=== PATIENT | female | born 1950 | race Caucasian/White ===

== ENCOUNTER → 2019-02-13 06:02 | Outpatient (CLI) | payer OTHER, SELFPAY ==
[2019-02-05 09:19] VITALS: BMI 24.7
--- NOTE | 2019-02-13 15:11 | STRESSREP_ITS ---
Stress Test Report Exercise myocardial perfusion stress test. 69-year-old lady with a history of chest pain. Stress protocol: Resting EKG demonstrates sinus bradycardia with a rate of 54 bpm normal intervals are noted resting blood pressures 150/80 mmHg. The patient exercised according to regular Rasta protocol for total duration of 7 minutes. The maxim um heart rate attained was 134 bpm which was 88% of maximum predicted heart rate and maximum workload was 8.5 metabolic equivalents. The patient maintained sinus rhythm throughout the recording. At rest there were no ST or T wave changes noted suggest ischemia peak exercise upsloping ST changes were noted with no meet the criteria for ischemia. The resting blood pressure was 150/80 with a final blood pressure 180/60 mmHg. No clinical angina was noted. Myocardial perfusion protocol. 11.7 mCi of technetium 99m sestamibi was injected at rest. The patient exercised according to regular Rasta protocol for total duration of 7 minutes. At peak exercise 32.6 mCi of technetium 99m sestamibi was injected stress images were obtained stress and rest images were reconstructed and compared in the short axis Perfusion SPECT analysis: Review of the images demonstrate normal uptake of tracer noted in all areas of the myocardium. The resting images similarly demonstrate normal uptake of tracer noted in all areas of the myocardium. No areas of reversibility are noted suggest ischemia or infarct. Gated SPECT analysis: The gated ejection fraction is 84%. Conclusion: Normal exercise myocardial perfusion stress test at a moderate workload. Preserved ejection fraction of 84%.
== END ==
PROVIDERS: Family Provider Internal Medicine; PCP Internal Medicine; Referring Provider Internal Medicine Cardiovascular Disease; Visit Provider Internal Medicine Cardiovascular Disease
DX: I48.0 Paroxysmal atrial fibrillation (principal); I10 Essential (primary) hypertension; R07.9 Chest pain, unspecified
CPT/HCPCS: 78452; 93017; A9500; A4216

== ENCOUNTER → 2019-02-17 10:47 | Outpatient (CLI) | payer OTHER, SELFPAY ==
[2019-02-05 09:19] VITALS: BMI 24.7
--- NOTE | 2019-02-17 10:48 | ECHOD_ITS ---
Reason For Study: ATRIAL FIB-FLUTTER Left Ventricle Normal LV size. Left ventricular systolic function is normal. The estimated ejection fraction is 65 %. Stage 1 diastolic dysfunction. No regional wall motion abnormalities noted. Right Ventricle Normal RV size. Normal systolic function. Atria Normal left atrium. Normal right atrium. Mitral Valve Normal mitral valve. Tricuspid Valve Normal tricuspid valve. Aortic Valve Normal aortic valve. Trisinus/trileaflet aortic valve. Pulmonic Valve Normal pulmonic valve. Great Vessels Normal aortic root. The pulmonary artery is normal size. Normal inferior vena cava. Pericardium/Pleural No pericardial effusion. MMode/2D Measurements & Calculations LVIDd: 4.3 cm IVSd: 0.94 cm Ao root diam: 3.0 cm LVIDs: 2.6 cm LVPWd: 1.0 cm RVDd: 3.0 cm FS: 39.7 % LAV(MOD-bp): 29.8 ml LVAd ap4: 21.7 cm2 SV(MOD-sp4): 41.6 ml LAV(MOD-bp) Indexed: 17.0 ml/m2 EDV(MOD-sp4): 57.2 ml LAV(MOD-sp2): 33.3 ml EDV(sp4-el): 57.8 ml LAV(MOD-sp4): 26.5 ml LVAs ap4: 9.8 cm2 ESV(MOD-sp4): 15.6 ml ESV(sp4-el): 15.1 ml EF(MOD-sp4): 72.7 % EF(sp4-el): 73.9 % SV(sp4-el): 42.7 ml LA dimension(2D): 3.9 cm LA A4 area: 12.8 cm2 RA A4 area: 11.0 cm2 Time Measurements MV dec time: 0.24 sec Doppler Measurements & Calculations MV E max eprnell: 74.5 cm/sec Lat Peak E' Pernell: 6.5 cm/sec Med Peak E' Pernell: 6.9 cm/sec MV A max pernell: 85.3 cm/sec E/E' lat: 11.5 E/E' med: 10.8 MV E/A: 0.87 Ao V2 max: 122.7 cm/sec LV V1 max: 130.8 cm/sec PA V2 max: 71.6 cm/sec Ao max P.0 mmHg LV V1 max P.8 mmHg Interpretation Summary Normal LV size. Left ventricular systolic function is normal. The estimated ejection fraction is 65 %. Stage 1 diastolic dysfunction. Structurally normal valves. Ordering Physician: Farooq Cervantes Referring Physician: ALFREDO MCBRIDE Performed By: Cristin Seay RDCS
== END ==
PROVIDERS: Family Provider Internal Medicine; PCP Internal Medicine; Referring Provider Internal Medicine Cardiovascular Disease; Visit Provider Internal Medicine Cardiovascular Disease
DX: I48.0 Paroxysmal atrial fibrillation (principal)
CPT/HCPCS: 93306

== ENCOUNTER → 2019-05-06 11:19 | Outpatient (REF) | payer OTHER, SELFPAY ==
[2019-05-06 10:23] VITALS: BMI 25.0
[2019-05-06 12:56] LABS: Absolute Lymphocyte Count 2.22 X10^3/uL (0.83-4.51); Absolute Neutrophil Count 3.5 X10^3/uL (2.0-7.7); Basophil# 0.04 X10^3/uL; Basophil% 0.6 % (0-1); Eosinophil# 0.22 X10^3/uL; Eosinophils% 3.4 % (0-5); Hematocrit 37.8 % (37-47); Hemoglobin 12.1 g/dL (12.0-15.0); Lymphocyte # 2.22 X10^3/ul (4.0); Lymphocyte % 34.2 % (19-41); Mean Corpuscular Hgb 30.8 pg (27.0-32.0); Mean Corpuscular Volume 96.2 fL (81-99); Mean Platelet Vol. 10.7 fl (6.2-12.0); Monocyte# 0.47 X10^3/uL; Monocyte% 7.2 % (0-10); NRBC Flagged by Analyzer 0 % (0-5); Neutrophil # 3.53 X10^3/uL (2.7-7.7); Neutrophil % 54.3 % (47-70); Platelet Count 261 K/mm3 (150-450); RBC Distribution Width CV 11.7 % (11.6-14.6); RBC Distribution Width SD 41.5 fl (35.1-43.9); Red Blood Count 3.93 M/mm3 (4.2-5.4); White Blood Count 6.5 K/mm3 (4.4-11.0)
[2019-05-06 13:35] LABS: Anion Gap 4 (5-15); BUN 18 mg/dL (7-18); BUN/Creat Ratio 23.4 RATIO (10-20); Calcium,Total 8.7 mg/dL (8.5-10.1); Chloride 107 mmol/L (98-107); Creatinine, Serum 0.77 mg/dL (0.55-1.02); EST Glomerular Filtration Rate 79 mL/min (>60); Est Glom Filt Rate - Afr Amer 96 mL/min (>60); Glucose 73 mg/dL (74-106); Magnesium 2.5 mg/dL (1.6-2.6); Potassium 4.3 mmol/L (3.5-5.1); Sodium Level 141 mmol/L (136-145); Thyroid Stim Hormone (TSH) 2.57 uIU/mL (0.358-3.74)
== END ==
LOC: CVS 11:19
PROVIDERS: Family Provider Internal Medicine; PCP Internal Medicine; Referring Provider Physician Assistant Medical; Visit Provider Physician Assistant Medical
DX: I47.1 Supraventricular tachycardia (principal); I48.0 Paroxysmal atrial fibrillation
CPT/HCPCS: 36415; 80048; 83735; 84443; 85025

== ENCOUNTER 2019-05-25 10:49 | Day surgery (SDC) | payer OTHER, SELFPAY ==
[2019-05-06 10:23] VITALS: BMI 25.0
--- NOTE | 2019-05-21 11:31 | RAD_ITS ---
STUDY: X-RAY CHEST REASON FOR EXAM: Female, 69 years old. Preop for pacemaker placement, A. fib, shortness of breath TECHNIQUE: PA and lateral views of the chest. COMPARISON: Prior study of 11/09/2016 FINDINGS: The lungs are clear and expanded. There is no demonstrated pleural abnormality. Normal size heart. Normal mediastinum and daniel. Normal visualized pulmonary arteries. Normal visualized aortic arch and descending thoracic aorta. Normal visualized thoracic spine. Normal visualized ribs, clavicles, and shoulders. There is no demonstrated abnormality of the visualized soft tissue structures of the upper abdomen. RAD/Chest PA and Lateral IMPRESSION: Normal x-ray examination of the chest. Electronically Signed: Radames Castillo MD at 23:54 EDT , Service support ,
[2019-05-21 12:06] LABS: Mucous, Urine 0 SEEN /hpf (<or=2+); Red Blood Cells-Urine 0 SEEN /hpf (0-5)
[2019-05-21 12:53] LABS: Color, Urine Yellow (Yellow); Glucose, Dipstick Normal (Normal); Ketone-Dipstick Negative (Negative); Leukocyte Esterase-Dipstick 500 /ul (Negative); Nitrite-Dipstick Negative (Negative); Occult Blood-Urine Negative /ul (Negative); Protein-Dipstick Negative (Negative); Specific Gravity, Urine 1.015 (1.002-1.030); Urine Bilirubin Dipstick Negative (Negative); Urine Clarity Sl. Cloudy (Clear); Urine Urobilinogen Normal (Normal)
[2019-05-21 13:03] LABS: Bacteria 1+ /hpf (None Seen); Squamous Epithelial Cells - UA 0-5 SEEN /hpf (5-10); White Blood Cells 25-50 SEEN /hpf (0-5)
[2019-05-21 13:12] LABS: International Normalized Ratio 1.3; Prothrombin Time (Protime)PT. 16.3 SECONDS (11.7-14.9)
[2019-05-22 12:28] VITALS: BMI 25.0
[2019-05-25] VITALS (12 sets, daily range): BP systolic 115–159; BP diastolic 59–93; PULSE 65–83; RESP 16–18; TEMP 36.7–36.8; O2SAT 93–100; BMI 25.0
--- NOTE | 2019-05-25 13:16 | CL.IE_ITS ---
Patient: MICHELE CARTER Study Date: 05/25/2019 Performing: Farooq Cervantes MD : 1950 Age: 69 Gender: female PROCEDURES PERFORMED XV81-VAMNNSS PACER INSERT+DUAL LEADS INDICATIONS Sinoatrial node dysfunction/Sick sinus syndrome PROCEDURE DETAILS The patient was brought to the Catheterization Lab in the postabsorptive nonsedated state. Infor med consent was obtained prior to the procedure. Local anesthetic was given subcutaneously to the le ft upper chest area with Lidocaine 2%. Incision was made to the left upper chest. Access was achieved and a guidewire was advanced into the left subclavian vein. PPM ventricular lead was inserted / posi tioned to right ventricular apex. PPM ventricular lead testing performed. PPM ventricular lead testin g performed. PPM atrial lead was inserted / positioned to the right atrial appendage. PPM atrial lead testing performed. The Ventricular PM lead sutured in place with 2-0 Silk. The Atrial lead sutured i n place with 2-0 Silk. PPM generator was attached to the lead(s) and inserted into the pocket. PPM ge nerator was then interrogated by the contract programmer. Device pocket was irrigated with antibiotic. Subcuta neous closure was completed with 3-0 Vicryl. Skin closure was completed with 4-0 Vicryl. Steri-strips applied to left subclavicular incision. The patient tolerated the procedure well. Estimated Blood Loss: < 10 mls IMPLANTED / EX-PLANTED DEVICES IMPLANTED DEVICE(S): PPM Ventricular lead - Government Relations Analyst: Busportal, Model # Ingevity MRI 7741 , Serial # [id number] PPM Atrial lead - Government Relations Analyst: [employer]portal, Model # Ingevity MRI 7740 , Serial # [id number] PPM Generator - Government Relations Analyst: [employer]portal, Model # Essentio MRI DR Pacemaker L111 , Serial # [id number] DEVICE PARAMETERS ATRIAL LEAD PARAMETERS: P wave- 7.2 (mV) Current- 1.1 (mA) threshold- 0.7 (V) impedence- 687 (OHMS) VENTRICULAR LEAD PARAMETERS: R wave- 18.3 (mV) Current- 0.7 (mA) threshold- 0.5 (V) impedence- 805 (OHMS) DEVICE PARAMETERS: Mode- DDD Lower rate- 60 Upper rate- 130 CONCLUSIONS / RECOMMENDATIONS Device Conclusions: Successful implantation of a dual chamber pacemaker Device Recommendations: Follow up with Primary Care Physician PROCEDURE MEDICATIONS Versed 1 mg IV Fentanyl 50 mcg IV Versed 1 mg IV Versed 1 mg IV Oxygen: 2 L/min via nasal cannula Antibiotic given in appropriate timeframe. Ancef 2 Gm IV @ 05/25/2019 12:08:50 Signed By Farooq Cervantes MD On 05/25/2019 13:15:15 Farooq Cervantes MD
[2019-05-25] MEDS: Acetaminophen 325 MG Tablet 650 MG PO ×2 (15:26→21:40)
[2019-05-25] MEDS: Flecainide 100 MG Tablet 50 MG PO (21:41)
[2019-05-25] MEDS: Smz/Tmp Ds Tablet 1 TABLET PO (21:41)
[2019-05-26 03:19] VITALS: PULSE 60
[2019-05-26 03:40] VITALS: BP 145/66; PULSE 67; RESP 18; TEMP 36.6; O2SAT 95
[2019-05-26] MEDS: Acetaminophen 325 MG Tablet 650 MG PO (04:35)
--- NOTE | 2019-05-26 05:00 | RAD_ITS ---
STUDY: X-RAY CHEST REASON FOR EXAM: Female, 69 years old. Status post pacemaker placement. TECHNIQUE: Single AP portable view of the chest. COMPARISON: 05/26/2019. FINDINGS: There is a left-sided pacemaker in place. The lungs are clear and slightly underexpanded. There is no demonstrated pleural abnormality. Normal size heart. Normal mediastinum and daniel. Normal visualized pulmonary arteries. There is atherosclerotic calcification of the aortic arch with tortuosity. There are diffuse degenerative changes of the visualized thoracic spine. There is degenerative osteoarthritis of the bilateral shoulders. There is no demonstrated abnormality of the visualized soft tissue structures of the upper abdomen. RAD/Chest 1 View IMPRESSION: Status post pacemaker placement otherwise no acute cardiopulmonary process seen. Electronically Signed: Lashawn Reed MD at 6:13 EDT , Service support ,
--- NOTE | 2019-05-26 05:55 | RAD_ITS ---
STUDY: X-RAY CHEST REASON FOR EXAM: Female, 69 years old. Status post pacemaker insertion, rule out pneumothorax. TECHNIQUE: PA and lateral views of the chest. COMPARISON: 05/21/2019. FINDINGS: There is a left-sided pacemaker in place, new in the interval. The lungs are clear and expanded. There is no demonstrated pleural abnormality. Normal size heart. Normal mediastinum and daniel. Normal visualized pulmonary arteries. There is atherosclerotic calcification of the aortic arch with tortuosity. There are diffuse degenerative changes of the visualized thoracic spine. There is degenerative osteoarthritis of the bilateral shoulders. There is no demonstrated abnormality of the visualized soft tissue structures of the upper abdomen. RAD/Chest PA and Lateral IMPRESSION: Status post pacemaker placement, otherwise no acute cardiopulmonary process seen. Electronically Signed: Lashawn Reed MD at 6:12 EDT , Service support ,
[2019-05-26 07:02] VITALS: PULSE 62
--- NOTE | 2019-05-26 07:51 | PCM.PN.CARD ---
Subjectve: Patient seen and evaluated. Appears to be doing well. Objective: Vital Signs Temp Pulse Resp BP Pulse Ox 97.8 F 67 18 145/66 H 95 05/26/19 03:40 05/26/19 03:40 05/26/19 03:40 05/26/19 03:40 05/26/19 03:40 Oxygen Delivery Method Room Air Weight: 149 lb 14.629 oz Body Mass Index (BMI) 25.0 Intake and Output for Last 24 Hours 05/24/19 05/25/19 05/26/19 23:59 23:59 23:59 Intake Total 700 / 700 480 / 480 Output Total 300 / 300 Balance 400 / 400 480 / 480 General: Awake, Alert, Oriented x 3 HEENT: PERRL, EOMI, Sclera Non Icteric Neck: Supple, Good ROM, No Lymph Node Enlargement Lungs: Clear to auscultation Cardiovascular: Regular Rhythm, Normal S1, Normal S2, No Murmurs, No Rubs, No Gallops Vascular: No Carotid Bruits, Normal Femoral Pulses, Normal Radial Pulses, Normal Dorsalis Pedal Pulse, Normal Posterior Tibial Pulses Abdomen: Bowel Sounds Present, Soft, Non Tender, No HSM, No Organomegaly Extremities: No Cyanosis, No Clubbing, No edema Musculoskeletal: No Erythema Skin: No Rashes Lymphatic: No Lymph Node Enlargement Neurological: No Focal Motor or Sensory Deficit Rhythm: EKG: ECHO: Stress Test: Cardiac Cath: PCI: CT Surgery: Holter monitor: EPS: PPM: CXR: Chest CT Scan: Medical Necessity - Tobacco Use Smoking Status: Former smoker Assessment/Plan 1. Status post permanent pacemaker implantation. Patient underwent chest x-ray which was noted to be normal as well as pacemaker check. Parameters look good and the patient will be discharged for outpatient follow-up.
--- NOTE | 2019-05-26 07:53 | DCINST_ITS ---
Discharge Diet: No Restrictions Discharge Activity: May Not Drive May shower in (days): 3 Call your doctor if your incision/area has: Continuous Slow Oozing, Sudden Increased Bleeding, Increased Pain/ Swelling, Increased Redness, Foul Smelling Discharge, Swelling at the incision site Call your doctor if you observe: Fever of 101 or Higher, Shortness of breath, Dizziness, Fainting spells, Swelling in the ankles, Chest pain, Prolonged hiccoughing, Increased palpitations (irregular heartbeat) Suture Line Care: Avoid Pulling/Pushing, Avoid Pinching/Bending Cleanse incision/area with: Do not get Incision Wet, Keep Dressing Clean & Dry Additional Dressing/Incision Instructions:: When dressing is removed, wash and dry incision. Keep covered with a light bandage if it is rubbing against your clothing. Do not cover the incision with an airtight bandage. Change the bandage daily. Do not remove steri strips. The strips will fall off on their own. Additional Instructions: Signs and Symptoms to Report to Your Doctor at Once - call your doctor's office or Doctor's Registry ([phone]) Call 911 or go to the nearest Emergency Department if you feel you need urgent care. *Infection (fever, increased redness or swelling at the incision site, drainage from the incision increased pain at the pacemaker site) *Shortness of breath *Dizziness *Fainting spells *Swelling in the ankles *Chest pain *Prolonged hiccoughing *Increased palpitaitons (irregular heartbeat) Medications: Take your pain medication as directed. Refer to your discharge instruction sheet for a list of medications you are to take. Allergies/Adverse Reactions: Allergies chlorhexidine Allergy (Verified 05/06/19 10:23) Rash estradiol [From Estrace] Allergy (Verified 05/06/19 10:23) unknown metoprolol Adverse Reaction (Intermediate, Verified 05/06/19 10:23) Orthostatic hypotension (does not have with Atenolol) naproxen Adverse Reaction (Verified 05/06/19 10:23) Upset Stomach negram Allergy (Uncoded 02/05/19 09:19) Unknown Medications to take at Discharge Raloxifene HCl 60 mg PO DAILY 11/09/16 cholecalciferol (vitamin D3) 400 unit tablet 400 unit PO QDAY 07/24/17 lansoprazole 30 mg capsule,delayed release 30 mg PO DAILY PRN 07/24/17 loratadine 10 mg tablet 10 mg PO QDAY 07/24/17 multivitamin tablet 1 tab PO ONCE 01/30/18 cranberry 500 mg capsule 500 mg PO DAILY cap 03/27/19 flecainide 100 mg tablet 50 mg PO BID tab 03/27/19 omega-3 fatty acids 1,000 mg capsule 1,000 mg PO DAILY 03/27/19 atenolol 50 mg tablet 25 mg PO DAILY tab 05/13/19 nitrofurantoin monohydrate/macrocrystals 100 mg capsule 100 mg PO BID #14 cap 05/21/19 Primary Care Physician: Lorin Garvey MD [Primary Care Provider] - Test Results: Test results from this visit will be discussed in further detail at your follow- up appointment, if applicable. When: pacer office june 02 at 4 pm Proposed Discharge Date: 05/26/19
== END 2019-05-26 07:45 | disposition home or self-care (01) ==
LOC: CLSP 10:50 → PCU 13:36
PROVIDERS: Family Provider Internal Medicine; PCP Internal Medicine; Referring Provider Internal Medicine Cardiovascular Disease; Visit Provider Internal Medicine Cardiovascular Disease
DX: I49.5 Sick sinus syndrome (principal); I10 Essential (primary) hypertension; I48.0 Paroxysmal atrial fibrillation; E78.5 Hyperlipidemia, unspecified; Z87.891 Personal history of nicotine dependence; Z95.0 Presence of cardiac pacemaker
CPT/HCPCS: 33208; 36415; 71045; 71046; 81001; 85610; 99152; 99153; J7040; J7050; C1894; Q9967

== ENCOUNTER 2020-02-22 08:43 | Day surgery (SDC) | payer OTHER, SELFPAY ==
[2020-02-19 13:28] VITALS: BMI 26.1
--- NOTE | 2020-02-19 14:45 | RAD_ITS ---
HISTORY: SINUS PAUSE, ABN EKG, SHORTNESS OF BREATH, AFIB. PT STATES DECREASED STAMINA SINCE PACEMAKER PLACEMENT. XR Chest 2 Views TECHNIQUE: Frontal lateral views of chest. # of images incl. paperwork: 2 COMPARISON: 05/26/2019 FINDINGS: LINES: Dual lead left-sided pacemaker in place. CARDIOVASCULAR STRUCTURES: Normal cardiomediastinal silhouette. Pulmonary vasculature appears normal. LUNGS: The lungs are clear. PLEURA: No pleural effusions or pneumothorax. BONES: No acute osseous abnormality of the thorax. RAD/Chest PA and Lateral IMPRESSION: 1. No acute cardiopulmonary disease. at 0110 Reported and signed by: Elpidio Stovall MD Electronically Signed: Elpidio Stovall MD at 1:09 EDT Tel , Service support ,
[2020-02-19 15:08] VITALS: BMI 26.1
[2020-02-19 15:28] LABS: Absolute Lymphocyte Count 2.15 X10^3/uL (0.83-4.51); Absolute Neutrophil Count 4.1 X10^3/uL (2.0-7.7); Basophil# 0.03 X10^3/uL; Basophil% 0.4 % (0-1); Eosinophil# 0.21 X10^3/uL; Hematocrit 37.8 % (37-47); Lymphocyte # 2.15 X10^3/ul (4.0); Lymphocyte % 30.7 % (19-41); Mean Corp Hgb Conc 31.7 g/dL (32-36); Mean Corpuscular Hgb 30.5 pg (27.0-32.0); Mean Corpuscular Volume 96.2 fL (81-99); Mean Platelet Vol. 10.2 fl (6.2-12.0); Monocyte# 0.46 X10^3/uL; Monocyte% 6.6 % (0-10); NRBC Flagged by Analyzer 0 % (0-5); Neutrophil # 4.14 X10^3/uL (2.7-7.7); Platelet Count 267 K/mm3 (150-450); RBC Distribution Width CV 12.1 % (11.6-14.6); RBC Distribution Width SD 42.4 fl (35.1-43.9); Red Blood Count 3.93 M/mm3 (4.2-5.4)
[2020-02-19 16:09] LABS: Anion Gap 2 (5-15); BUN 20 mg/dL (7-18); BUN/Creat Ratio 22.2 RATIO (10-20); Calcium,Total 8.4 mg/dL (8.5-10.1); Chloride 107 mmol/L (98-107); EST Glomerular Filtration Rate 66 mL/min (>60); Est Glom Filt Rate - Afr Amer 80 mL/min (>60); Estimated Creatinine Clearance 52.34 ml/min; Glucose 114 mg/dL (74-106); Potassium 3.7 mmol/L (3.5-5.1); Sodium Level 140 mmol/L (136-145)
--- NOTE | 2020-02-22 10:28 | CL.D_ITS ---
Patient Name: MICHELE CARTER Study Date: 02/22/2020 Performing: Farooq Cervantes MD Ht: 64.96 inches 165 cm : 1950 Wt: 156.53 lbs 71 kg Age: 70 Gender: female BSA: 1.78 PROCEDURE(S) PERFORMED CH50-XLQ/COR/LV CLINICAL PROFILE AND INDICATIONS Indications: Suspected CAD Heart Failure: None Stress/Imaging Stress/Image Study Performed: No CAD Presentations: Other: SOB CONCLUSIONS Normal coronary arteries Normal LV size, wall motion,and systolic function RECOMMENDATIONS Medical therapy DESCRIPTION OF PROCEDURE The patient arrived to the procedure lab. The risks and benefits of the procedure as well as a full d escription of our services here and current unavailability of surgical backup were fully explained to the patient and/or their significant other prior to the catheterization. The Timeout was completed, verifying the correct patient and procedure. The patient's procedural site was prepped and draped in the usual fashion. Local anesthetic was given subcutaneously to right radial region with Lidocaine 2% . Using a modified Seldinger technique, arterial access was obtained via the right radial artery, a 6 Fr sheath was inserted. Left Coronary Artery selective angiography was performed in multiple views u sing a 5 Fr. 4.0 [place] catheter. Right Coronary Artery selective angiography was then performed in mu ltiple views using a 5 Fr. 4.0 [place] catheter. Left Ventriculography was performed in [place] projection using a 5 Fr. Pig[place] catheter. LV to AO pullback pressures were then recorded.The arterial sheath was pulled and a TR Band was applied for hemostasis, 10cc of air was placed in the TR band. CORONARY ANGIOGRAPHY DOMINANCE: Right Dominant LEFT HEART ASSESSMENT Left Ventricular Ejection Fraction: by LV Gram 60 % Normal LV wall motion Normal Left Ventricular systolic function Normal Left Ventricular systolic function LEFT MAIN: Angiographically normal LEFT ANTERIOR DESCENDING ARTERY: Angiographically normal CIRCUMFLEX ARTERY: Angiographically normal RIGHT CORONARY ARTERY: Angiographically normal COMPLICATIONS No Complications PROCEDURE MEDICATIONS Versed 1 mg IV Fentanyl 50 mcg IV Oxygen: 2 L/min via nasal cannula Heparin diluted in 23cc Heparinized saline. Patient given 10cc IA of this solution. 02/22/2020 10:04: 22 Verapamil 2.5mg, Ntg 100mcgs, 2000 units of Heparin diluted in 23cc Heparinized saline. Patient give n 10cc IA of this solution. 02/22/2020 10:04:22 SUMMARY OF HEMODYNAMIC DATA Time AIR REST ECG 09:06:14 AO 130/69 (94) SA 10:06:18 LV 143/-2, 2 10:11:46 LV 130/-4, 0 10:11:52 LV 114/2, 9 10:12:35 LVp 118/1, 5 10:12:41 AOp 128/58 (89) 10:12:46 Signed By Farooq Cervantes MD On 02/22/2020 10:27:15 Farooq Cervantes MD
== END 2020-02-22 12:20 | disposition home or self-care (01) ==
PROVIDERS: PCP Internal Medicine; Referring Provider Internal Medicine Cardiovascular Disease; Visit Provider Internal Medicine Cardiovascular Disease
DX: R06.02 Shortness of breath (principal); R06.00 Dyspnea, unspecified; I10 Essential (primary) hypertension; I48.0 Paroxysmal atrial fibrillation; Z95.0 Presence of cardiac pacemaker; Z87.891 Personal history of nicotine dependence
CPT/HCPCS: 36415; 71046; 80048; 85025; 93458; 99152; 99153; J7040; Q9967; C1769; C1894

== ENCOUNTER → 2020-09-01 14:27 | Outpatient (CLI) | payer OTHER, SELFPAY ==
[2020-09-01 13:48] VITALS: BMI 25.2
[2020-09-01 16:03] LABS: CRP, High Sensitivity Cardiac 5.82 mg/L
== END ==
PROVIDERS: PCP Internal Medicine; Referring Provider Internal Medicine Cardiovascular Disease; Visit Provider Internal Medicine Cardiovascular Disease
DX: R07.9 Chest pain, unspecified (principal)
CPT/HCPCS: 36415; 86141

== ENCOUNTER → 2021-01-27 08:58 | Outpatient (CLI) | payer MEDICARE, SELFPAY ==
[2020-09-01 13:48] VITALS: BMI 25.2
--- NOTE | 2021-01-27 09:05 | RAD_ITS ---
STUDY: X-RAY CHEST REASON FOR EXAM: Female, 71 years old. sob TECHNIQUE: PA and lateral views of the chest. COMPARISON: 02/19/2020 FINDINGS: Left subclavian dual-lead pacemaker. The lungs are clear and expanded. There is no demonstrated pleural abnormality. Normal size heart. Normal mediastinum and daniel. Normal visualized pulmonary arteries. Normal visualized aortic arch and descending thoracic aorta. Normal visualized thoracic spine. Normal visualized ribs, clavicles, and shoulders. There is no demonstrated abnormality of the visualized soft tissue structures of the upper abdomen. RAD/Chest PA and Lateral IMPRESSION: No active disease. Electronically Signed: Ernesto Bowie MD at 10:50 EDT Tel , Service support ,
--- NOTE | 2021-01-28 07:22 | PFT ---
INTRODUCTION: The patient is a 71-year-old female that presents for pulmonary function studies secondary to a diagnosis of shortness of breath. Respiratory therapy reports good patient effort. Bronchodilators were used during testing. INTERPRETATION: Forced expiration spirometry demonstrates no evidence of a large airways obstructive ventilatory defect. There was no significant response to aerosolized bronchodilators, based upon strict ATS criteria. Spirograms are of good quality and plateau normally. Body plethysmography was performed and reveals lung volumes to be within normal limits. Diffusing capacity by single breath CO is also within normal limits. IMPRESSION: Grossly normal pulmonary function studies.
== END ==
PROVIDERS: PCP Family Medicine; Referring Provider Family Medicine; Visit Provider Family Medicine
DX: R07.89 Other chest pain (principal); R06.02 Shortness of breath
CPT/HCPCS: 71046; 94060; 94726; 94729

== ENCOUNTER → 2021-02-14 08:26 | Outpatient (CLI) | payer MEDICARE, SELFPAY ==
[2020-09-01 13:48] VITALS: BMI 25.2
== END ==
PROVIDERS: PCP Family Medicine; Referring Provider Internal Medicine Cardiovascular Disease; Visit Provider Internal Medicine Cardiovascular Disease
DX: I48.91 Unspecified atrial fibrillation (principal); R00.0 Tachycardia, unspecified
CPT/HCPCS: 93225; 93226

== ENCOUNTER → 2021-03-14 07:54 | Outpatient (CLI) | payer MEDICARE, SELFPAY ==
[2020-09-01 13:48] VITALS: BMI 25.2
--- NOTE | 2021-03-14 08:45 | CT_ITS ---
STUDY: CT CHEST WITHOUT CONTRAST REASON FOR EXAM: Female, 71 years old. 6 months of pain w/o clear cause with SOB. Remote tobacco. ++FHx RADIATION DOSAGE (If Supplied By Facility): CTDIvol = ( 7.55 ) mGy, DLP = ( 243.63 ) mGycm TECHNIQUE: Transaxial imaging was performed without the administration of intravenous contrast material. Multiplanar coronal and sagittal images were reformatted. Individualized dose optimization techniques were used for this CT. COMPARISON: Comparison is made with prior chest radiograph dated 01/27/2021. FINDINGS: Mild degree of emphysematous changes. Findings suggest some scarring at the lung apices bilaterally. There is no demonstrated pleural abnormality. A left-sided dual-chamber pacemaker is seen. There are multiple small lymph nodes within the mediastinum, which are normal in size and morphology most compatible with reactive lymph hyperplasia. Normal hilar regions. Normal unenhanced pulmonary arteries. There is atherosclerotic calcification of the aortic arch . There are degenerative changes of the thoracic spine. There is no demonstrated abnormality of the visualized upper abdomen. CT/Chest without Contrast IMPRESSION: Mild degree of emphysematous changes. Electronically Signed: Rik Vasquez MD at 10:51 EDT , Service support ,
[2021-03-14 08:56] VITALS: PULSE 60; PULSE 61; PULSE 74; PULSE 77; PULSE 80; PULSE 81; PULSE 82; O2SAT 94; O2SAT 95; O2SAT 97; O2SAT 98
== END ==
PROVIDERS: PCP Family Medicine; Visit Provider Family Medicine
DX: R07.89 Other chest pain (principal); R06.02 Shortness of breath
CPT/HCPCS: 71250; 94618

== ENCOUNTER 2021-03-22 09:51 | Outpatient (RCR) | payer MEDICARE, SELFPAY ==
[2020-09-01 13:48] VITALS: BMI 25.2
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
--- NOTE | 2021-04-07 09:31 | HP.PT.NRP ---
MICHELE CARTER was seen in my office for initial evaluation on 03/22/21. The following Plan of Care was established for this patient: Initial Frequency: 2-3x /Week Initial Duration: 4-6 Weeks Patient/Client Instruction: Educate patient on: Condition, Plan of Care, Risk Factors For the Purpose of:: To improve self management Therapeutic Exercise to Include: Strength training, Body mechanics, Postural training, Flexibilty training, Neuromotor development, Scapular Strength/Stabilization For the Purpose of:: To decrease pain, To improve muscle performance and motor function, To increase tolerance to activity/condition/position, To improve ability of physical actions for home/community/work/leisure This patient was last seen in our office 03/22/21. Pertinent comments regarding their Physical therapy will appear below: THIS PATIENT PRESENTED TO PT WANTING TO CANCEL BUT REPORTING FEELING BAD DUE TO ALL THE CANCELLATIONS SHE HAS MADE. SHE HAS NOT BEEN BACK SINCE HER INITIAL EVALUATION. STATES THAT WHILE SHE HAS BEEN RECOVERING FROM COVID THE SYMPTOMS THAT DR. MAHONEY SENT HER HERE FOR HAVE RESOLVED. SHE IS CANCELLING ALL GABRIELA'TS AND WILL FOLLOW UP WITH DR. MAHONEY NEEDED. At this point I will be discontinuing this patient from physical therapy. I would be happy to see this patient again in the future if found appropriate by the physician. Thank you! Jennifer Carter, PT, Cert MDT Balance/Gait/Functional tests - Balance/Special Test Scores Quick DASH Score: 36.3622
== END 2021-04-22 19:00 | disposition home or self-care (01) ==
LOC: PT 09:51
PROVIDERS: PCP Family Medicine; Referring Provider Family Medicine; Visit Provider Family Medicine
DX: M79.602 Pain in left arm (principal); R07.9 Chest pain, unspecified
CPT/HCPCS: 97112; 97162

== ENCOUNTER → 2021-05-05 07:59 | Outpatient (CLI) | payer MEDICARE, SELFPAY ==
[2021-05-05 09:40] LABS: Anion Gap 5 (5-15); BUN 15 mg/dL (7-18); BUN/Creat Ratio 18.3 RATIO (10-20); Chloride 106 mmol/L (98-107); Creatinine, Serum 0.82 mg/dL (0.55-1.02); EST Glomerular Filtration Rate 73 mL/min (>60); Est Glom Filt Rate - Afr Amer 88 mL/min (>60); Glucose 86 mg/dL (74-106); Potassium 4.3 mmol/L (3.5-5.1); Sodium Level 143 mmol/L (136-145)
== END ==
PROVIDERS: PCP Family Medicine; Referring Provider Nurse Practitioner Gerontology; Visit Provider Nurse Practitioner Gerontology
DX: I10 Essential (primary) hypertension (principal)
CPT/HCPCS: 36415; 80048

== ENCOUNTER → 2021-11-22 | Outpatient (CLI) | payer MEDICARE, SELFPAY ==
[2021-11-22 08:56] LABS: Anion Gap 6 (5-15); BUN 15 mg/dL (7-18); BUN/Creat Ratio 15.1 RATIO (10-20); Calcium,Total 8.4 mg/dL (8.5-10.1); Chloride 106 mmol/L (98-107); Creatinine, Serum 0.99 mg/dL (0.55-1.02); EST Glomerular Filtration Rate 59 mL/min (>60); Est Glom Filt Rate - Afr Amer 71 mL/min (>60); Glucose 90 mg/dL (74-106); Magnesium 2.3 mg/dL (1.6-2.6); Sodium Level 143 mmol/L (136-145); T4 Free Direct 0.94 ng/dL (0.76-1.46); Thyroid Stim Hormone (TSH) 5.79 uIU/mL (0.358-3.74)
== END | disposition home or self-care (01) ==
LOC: LAB 08:04
PROVIDERS: PCP Family Medicine; Referring Provider Nurse Practitioner Family; Visit Provider Nurse Practitioner Family
DX: I48.0 Paroxysmal atrial fibrillation (principal); I47.1 Supraventricular tachycardia; I10 Essential (primary) hypertension
CPT/HCPCS: 36415; 80048; 83735; 84439; 84443

== ENCOUNTER → 2022-01-03 | Outpatient (CLI) | payer MEDICARE, SELFPAY ==
[2022-01-03 09:26] LABS: PTHIN 73.5 pg/mL (18.4-80.1)
[2022-01-03 09:35] LABS: Cholesterol 210 mg/dL (200); High Density Lipoprotein 71 mg/dL; T4 Free Direct 0.93 ng/dL (0.76-1.46); Thyroid Stim Hormone (TSH) 4.58 uIU/mL (0.358-3.74); Triglycerides 90 mg/dL; Very Low Density Lipoprotein 18 mg/dL (5-40)
[2022-01-03 10:05] LABS: Hepatitis C Antibody Non-Reactive (Nonreactive); Vitamin D,25 Hydroxy 48.4 ng/mL
== END | disposition home or self-care (01) ==
LOC: LAB 08:00
PROVIDERS: PCP Family Medicine; Referring Provider Family Medicine; Visit Provider Family Medicine
DX: Z00.00 Encounter for general adult medical examination without abnormal findings (principal); I48.91 Unspecified atrial fibrillation; M85.80 Other specified disorders of bone density and structure, unspecified site; R79.89 Other specified abnormal findings of blood chemistry; Z11.59 Encounter for screening for other viral diseases
CPT/HCPCS: 36415; 80061; 82306; 83970; 84439; 84443; 86803

== ENCOUNTER → 2022-02-20 | Outpatient (CLI) | payer MEDICARE, SELFPAY ==
--- NOTE | 2022-02-20 09:36 | BI_ITS ---
MAMMOGRAPHY - BILATERAL SCREENING REASON FOR EXAM: Female, 72 years old. Routine annual screening examination. PERTINENT HISTORY: Sister with breast cancer. Mother with breast cancer. TECHNIQUE: Digital bilateral breast shirin (3D mammographic acquisition) in the CC and MLO projections. 2-D mediolateral oblique (MLO) and craniocaudad (CC) views of both breasts were obtained. CAD: Full Field Digital Mammography with Computer Added Detection was performed. COMPARISON: Comparison is made with prior outside examination dated 02/16/2021. FINDINGS: Breast Composition: There are scattered areas of fibroglandular density. There are no dominant masses or suspicious calcifications. A pacemaker battery pack is seen in the left axillary region. No other significant abnormalities are identified. There has been no significant change since the prior study. BI/SCRN MAMM (CAD)W/SHIRIN BILAT IMPRESSION: Stable bilateral screening mammogram. Yearly follow-up mammogram recommended. (A) ASSESSMENT CATEGORY: BIRADS Category 2: Benign. A letter regarding these results will be sent to the patient by the facility within 30 days. Approximately 10% of breast cancers are not detected by mammography. A normal mammogram should not delay biopsy of a clinically suspicious abnormality. [id number] Electronically Signed: Rik Vasquez MD at 10:50 EDT ,
--- NOTE | 2022-02-20 09:59 | BD_ITS ---
STUDY: DUAL ENERGY X-RAY ABSORPTIOMETRY / DXA REASON FOR EXAM: Female, 72 years old. 733.90OsteopeniaBONE DENSITY REASON FOR EXAM TECHNIQUE: Bone Mineral Density (BMD) measurements of lumbar spine and bilateral hips were obtained. COMPARISON: None. FINDINGS: Lumbar Spine (L1-L4): g/cm2 (0.971) / T-score (-0.7) / Z-score (1.5) Findings are suggestive of normal bone density with a low fracture risk. Left Femur Total: g/cm2 (0.840) / T-score (-0.8) / Z-score (0.8) Left Femoral Neck: g/cm2 (0.622) / T-score (-2.0) / Z-score (-0.1) Right Femur Total: g/cm2 (0.931) / T-score (-0.1) / Z-score (1.5) Right Femoral Neck: g/cm2 (0.751) / T-score (-0.9) / Z-score (1.0) BD/Dexa Bone Density Study IMPRESSION: The patient is considered osteopenic as outlined below according to World Regan Organization (WHO) criteria with a moderate fracture risk. Reference Information: The T-score is the number of standard deviations above or below the standard which is normal for young adults at their peak bone mineral density. The World Health Organization (WHO) interprets the T-scores as follows: Above -1 Normal bone density Between -1 and -2.5 Osteopenia Equal to / or below -2.5 Osteoporosis As a practical clinical guideline, osteopenia may be graded as follows: Mild -1 through -1.5 Moderate -1.6 through -2.0 Severe -2.1 through -2.4 The Z-score is the number of standard deviations above or below age-matched controls. A Z-score of less than -1.5 would be considered abnormal. References: 1. NIH Osteoporosis and Related Bone Diseases www osteo.org 2. International Society for Clinical Densitometry www iscd.org 3. National Osteoporosis Foundation www nof.org Electronically Signed: Rik Vasquez MD at 10:37 EDT ,
== END | disposition home or self-care (01) ==
PROVIDERS: PCP Family Medicine; Referring Provider Family Medicine; Visit Provider Family Medicine
DX: Z12.31 Encounter for screening mammogram for malignant neoplasm of breast (principal); Z80.3 Family history of malignant neoplasm of breast; M85.89 Other specified disorders of bone density and structure, multiple sites
CPT/HCPCS: 77063; 77067; 77080

== ENCOUNTER → 2022-03-05 | Outpatient (CLI) | payer MEDICARE, SELFPAY ==
[2022-03-05 18:25] LABS: T4 Free Direct 0.99 ng/dL (0.76-1.46); Thyroid Stim Hormone (TSH) 2.91 uIU/mL (0.358-3.74)
== END | disposition home or self-care (01) ==
LOC: MTLAB 16:06 → MFPLAB 16:55
PROVIDERS: PCP Family Medicine; Referring Provider Family Medicine; Visit Provider Family Medicine
DX: E05.90 Thyrotoxicosis, unspecified without thyrotoxic crisis or storm (principal)
CPT/HCPCS: 36415; 84439; 84443

== ENCOUNTER → 2022-03-08 | Outpatient (CLI) | payer MEDICARE, SELFPAY | END | disposition home or self-care (01) | LOC: LABSPEC 13:54 | PROVIDERS: PCP Family Medicine; Visit Provider Family Medicine | DX: R30.0 Dysuria (principal) | CPT/HCPCS: 87086; 87088 ==

== ENCOUNTER → 2022-04-23 | Outpatient (CLI) | payer MEDICARE, SELFPAY | END | disposition home or self-care (01) | LOC: LABSPEC 15:03 | PROVIDERS: PCP Family Medicine; Visit Provider Family Medicine | DX: R30.0 Dysuria (principal) | CPT/HCPCS: 87077; 87086; 87088; 87186 ==

== ENCOUNTER → 2022-05-15 | Outpatient (CLI) | payer MEDICARE, SELFPAY ==
[2022-05-15 10:12] LABS: Color, Urine Yellow (Yellow); Glucose, Dipstick Normal (Normal); Ketone-Dipstick 5 mg/dl (Negative); Leukocyte Esterase-Dipstick 500 /ul (Negative); Nitrite-Dipstick Negative (Negative); Occult Blood-Urine 10 /ul (Negative); Protein-Dipstick 30 mg/dl (Negative); Specific Gravity, Urine 1.015 (1.002-1.030); Urine Bilirubin Dipstick Negative (Negative); Urine Clarity Sl. Cloudy (Clear); Urine Urobilinogen 1 mg/dl (Normal)
== END | disposition home or self-care (01) ==
LOC: LABSPEC 09:33
PROVIDERS: PCP Family Medicine; Referring Provider Family Medicine; Visit Provider Family Medicine
DX: K76.0 Fatty (change of) liver, not elsewhere classified (principal)
CPT/HCPCS: 81002; 87086; 87088

== ENCOUNTER → 2022-07-10 | Outpatient (CLI) | payer MEDICARE, SELFPAY ==
--- NOTE | 2022-07-10 13:50 | CT_ITS ---
STUDY: CT ABDOMEN AND PELVIS WITH AND WITHOUT CONTRAST REASON FOR EXAM: Female, 72 years old. HEMATURIA intermittently for several months. History of recurrent UTIs. RADIATION DOSAGE (If Supplied By Facility): CTDIvol = ( 12.89 ) mGy, DLP = ( 1467.69 ) mGycm TECHNIQUE: Transaxial images were obtained from the dome of the diaphragm to the symphysis pubis without oral contrast. IV 100mL Isovue-300 was administered. Sagittal and coronal images were reconstructed. Individualized dose optimization techniques were used for this CT. COMPARISON: None. FINDINGS: The visualized lung bases are unremarkable. Pacemaker wires are visualized. Normal liver. The patient is status post cholecystectomy. Normal spleen. Normal pancreas. Normal bilateral adrenal glands. Subcentimeter cyst in the anterior aspect of the right kidney. There is a 1.8 cm cyst in the lower pole of the left kidney. Normal visualized stomach. 1.9 cm elliptical shaped density is seen in the proximal small bowel most likely representing a tablet. A similar-appearing density is seen in the transverse colon. Surgical anastomosis is seen in the cyst rectosigmoid junction. The appendix is visualized and appears normal. Normal abdominal aorta. Normal inferior vena cava. Normal retroperitoneum. A tiny air bubble is seen in the anterior aspect of the urinary bladder. Normal abdominal wall. There are degenerative changes of the visualized lumbar spine. CT/CT Abd/Pelvis W/WO Contrast IMPRESSION: Tiny cysts seen in both kidneys. Tiny air bubble is seen in the anterior aspect of the urinary bladder. Electronically Signed: Rik Vasquez MD at 15:37 EST ,
[2022-07-10 14:21] LABS: CREATININE FINGERSTICK 1.1 mg/dL (0.55-1.02)
== END | disposition home or self-care (01) ==
LOC: CT 13:49
PROVIDERS: PCP Family Medicine; Referring Provider Urology; Visit Provider Urology
DX: R31.0 Gross hematuria (principal); N39.0 Urinary tract infection, site not specified; N28.1 Cyst of kidney, acquired; Z90.49 Acquired absence of other specified parts of digestive tract
CPT/HCPCS: 74178; Q9967

== ENCOUNTER → 2022-08-13 | Outpatient (CLI) | payer MEDICARE, SELFPAY | END | disposition home or self-care (01) | LOC: LABSPEC 17:54 | PROVIDERS: PCP Family Medicine; Visit Provider Urology | DX: N30.01 Acute cystitis with hematuria (principal) | CPT/HCPCS: 87077; 87086; 87088; 87186 ==

== ENCOUNTER → 2022-09-21 | Outpatient (CLI) | payer MEDICARE, SELFPAY ==
[2022-09-21 10:11] LABS: Absolute Lymphocyte Count 1.51 X10^3/uL (0.83-4.51); Absolute Neutrophil Count 3.2 X10^3/uL (2.0-7.7); Basophil# 0.01 X10^3/uL; Basophil% 0.2 % (0-1); Eosinophil# 0.12 X10^3/uL; Eosinophils% 2.3 % (0-5); Hematocrit 40.2 % (37-47); Hemoglobin 12.7 g/dL (12.0-15.0); Lymphocyte # 1.51 X10^3/ul (0.83-4.51); Lymphocyte % 28.6 % (19-41); Mean Corp Hgb Conc 31.6 g/dL (32-36); Mean Corpuscular Hgb 30.3 pg (27.0-32.0); Mean Corpuscular Volume 95.9 fL (81-99); Mean Platelet Vol. 10.4 fl (6.2-12.0); Monocyte# 0.42 X10^3/uL; NRBC Flagged by Analyzer 0 % (0-5); Neutrophil # 3.21 X10^3/uL (2.7-7.7); Neutrophil % 60.7 % (47-70); Platelet Count 237 K/mm3 (150-450); RBC Distribution Width CV 12.4 % (11.6-14.6); RBC Distribution Width SD 43.8 fl (35.1-43.9); Red Blood Count 4.19 M/mm3 (4.2-5.4); White Blood Count 5.3 K/mm3 (4.4-11.0)
[2022-09-21 11:09] LABS: AST(SGOT) 24 U/L (15-37); Alanine Aminotransfer ALT/SGPT 33 U/L (13-56); Albumin, Serum 3.2 g/dL (3.2-5.0); Alkaline Phosphatase 68 U/L (45-117); Anion Gap 6 (5-15); BUN 16 mg/dL (7-18); BUN/Creat Ratio 17.5 RATIO (10-20); Calcium,Total 8.6 mg/dL (8.5-10.1); Chloride 107 mmol/L (98-107); Creatinine, Serum 0.91 mg/dL (0.55-1.02); EST Glomerular Filtration Rate 64 mL/min (>60); Est Glom Filt Rate - Afr Amer 78 mL/min (>60); Globulin 3.3 g/dL (2.2-4.2); Glucose 83 mg/dL (74-106); Potassium 3.7 mmol/L (3.5-5.1); Protein, Total 6.5 g/dL (6.4-8.2); Sodium Level 140 mmol/L (136-145); Thyroid Stim Hormone (TSH) 3.37 uIU/mL (0.358-3.74)
== END | disposition home or self-care (01) ==
LOC: MFPLAB 08:55
PROVIDERS: PCP Family Medicine; Referring Provider Family Medicine; Visit Provider Family Medicine
DX: E05.90 Thyrotoxicosis, unspecified without thyrotoxic crisis or storm (principal); G47.10 Hypersomnia, unspecified
CPT/HCPCS: 36415; 80053; 84439; 84443; 85025

== ENCOUNTER 2022-10-08 09:25 | Emergency (ER) | payer MEDICARE, SELFPAY ==
[2022-10-08] VITALS (11 sets, daily range): BP systolic 118–151; BP diastolic 50–87; PULSE 64–122; RESP 18–20; TEMP 37.3–39.2; O2SAT 85–96; BMI 26.1
--- NOTE | 2022-10-08 09:47 | EKG12_ITS ---
Test Reason : WEAKNESS Blood Pressure : / mmHG Vent. Rate : 115 BPM Atrial Rate : 000 BPM P-R Int : 000 ms QRS Dur : 102 ms QT Int : 264 ms P-R-T Axes : 000 -14 178 degrees QTc Int : 365 ms Atrial fibrillation with rapid ventricular response with premature ventricular or aberrantly conducte d complexes ST & T wave abnormality, consider inferior ischemia ST & T wave abnormality, consider anterolateral ischemia Abnormal ECG Confirmed by BRITT MARTIN, ERIK ([id number]), scientific publications editor JERRI GAGNON ([id number]) on 10/10/2022 9:47:47 AM Referred By: Confirmed By:ERIK DE LA TORRE MD
--- NOTE | 2022-10-08 09:48 | ED.VIS.CHEST ---
HPI History of Present Illness Chief Complaint: Weakness Narrative Narrative: 72-year-old female presenting with chest pain, shortness of breath. She describes it as retrosternal. She states its been ongoing since last evening intermittently. She states she does have a pacemaker, but notes that her heart rate was as high as 190s last night. She states that it seemed to calm down since then. She describes her chest pain as achy. Patient does take Eliquis for history of A-fib. She had recent vaginal prolapse surgery and held her Eliquis Saturday and Saturday of last week so she could have the surgery on . She states she has had a little bit of spotting but no real bleeding to speak of. She reports she started back on her Eliquis last evening. No history of DVT/PE. Denies any leg or calf pain. [facility] Medical History Essential (primary) hypertension Hyperlipidemia Immunodeficiency Palpitations Paroxysmal atrial fibrillation Paroxysmal supraventricular tachycardia Sick sinus syndrome Sinus pause Thoracic outlet syndrome Home Medications multivitamin 1 tab PO ONCE 01/30/18 [History Last Taken Unknown] omega-3 fatty acids 1,000 mg capsule 1,000 mg PO DAILY 03/27/19 [History Last Taken Unknown] lansoprazole 30 mg capsule,delayed release 30 mg PO DAILY PRN stomach acid 06/16/19 [History Last Taken 02/22/20] raloxifene 60 mg tablet 60 mg PO DAILY 06/16/19 [History Last Taken Unknown] B-complex with vitamin C 1 tab PO DAILY 02/19/20 [History Last Taken Unknown] apixaban 5 mg tablet (Eliquis) See Rx Instructions .Route .COMPLEX #180 tabs 07/25/20 [Rx Last Taken Unknown] cranberry 500 mg capsule 500 mg PO BID 09/01/20 [History Last Taken Unknown] loratadine 10 mg tablet 10 mg PO DAILY 09/01/20 [History Last Taken Unknown] calcium carbonate 500 mg calcium (1,250 mg) tablet (Calcium 500) 500 mg PO BID 03/24/21 [History Last Taken Unknown] cholecalciferol (vitamin D3) 10 mcg (400 unit) tablet 2,000 unit PO BID 03/24/21 [History Last Taken Unknown] selenium 200 mcg tablet ea PO 12/28/21 [History Last Taken Unknown] atenolol 25 mg tablet 25 mg PO DAILY #90 tabs 03/05/22 [Rx Last Taken Unknown] amiodarone 200 mg tablet 200 mg PO DAILY #90 tabs 06/28/22 [Rx Last Taken Unknown] Allergy/AdvReac Type Severity Reaction Status Date / Time chlorhexidine Allergy Rash Verified 10/08/22 09:29 estradiol [From Estrace] Allergy unknown Verified 10/08/22 09:29 metoprolol AdvReac Intermediate Orthostatic Verified 10/08/22 09:29 hypotension (does not have with Atenolol) naproxen AdvReac Upset Verified 10/08/22 09:29 Stomach negram Allergy Unknown Uncoded 10/08/22 09:29 Family History Mother Breast cancer Diabetes Hypertension Sister Cancer Surgical History History of hysteroscopy History of left heart catheterization (02/22/20) History of permanent cardiac pacemaker placement (05/25/19) Hx laparoscopic cholecystectomy Hx of vaginal surgery Social History Smoking Status: Former smoker alcohol intake: current alcohol intake frequency: holidays/special occasions only Alcohol type: wine and hard liquor substance use type: does not use caffeine: Yes Type: tea what type of physical activity do you participate in: none seatbelt use: always do you feel safe at home: Yes ROS ROS ED Review of Systems ROS Unobtainable: due to encephalopathy Constitutional Constitutional ED: Reports chills Eyes Eyes: Denies blurry vision or change in vision ENT ENT ED: Denies rhinorrhea Cardiovascular Cardiovascular: Reports chest pain, palpitations and racing heartbeat Respiratory/Chest Respiratory/Chest: Reports dyspnea; Denies cough Gastrointestinal Gastrointestinal: Reports nausea; Denies abdominal pain or vomiting Genitourinary Genitourinary ED: Denies dysuria or hematuria Musculoskeletal Musculoskeletal: Denies back pain or neck pain Integumentary Denies abscess or Abrasions Neurologic Neurologic: Reports headache(s); Denies paresthesias Psychiatric Psychiatric: Denies anxiety or depression EXAM Physical Exam Const Vital Signs: 10/08/22 09:26 10/08/22 09:42 10/08/22 10:17 Temperature 99.2 F H Temperature Source Temporal Pulse Rate 122 H Respiratory Rate 18 Respiratory Effort Short of Breath Respiratory Pattern Tachypnea Blood Pressure 151/87 H Blood Pressure Mean 108 Pulse Ox 96 Oxygen Delivery Method Room Air Room Air Oxygen Flow Rate (L/min) 10/08/22 10:27 10/08/22 11:00 10/08/22 11:05 Temperature Temperature Source Pulse Rate 69 Respiratory Rate Respiratory Effort Respiratory Pattern Blood Pressure Blood Pressure Mean Pulse Ox 85 88 Oxygen Delivery Method Room Air Nasal Cannula Oxygen Flow Rate (L/min) 2 10/08/22 11:06 10/08/22 11:41 10/08/22 12:35 Temperature 101.9 F H 102.5 F H Temperature Source Oral Oral Pulse Rate 67 Respiratory Rate 18 Respiratory Effort Respiratory Pattern Blood Pressure 131/52 H Blood Pressure Mean 78 Pulse Ox 95 96 Oxygen Delivery Method Nasal Cannula Nasal Cannula Oxygen Flow Rate (L/min) 3 3 10/08/22 14:38 10/08/22 16:15 10/08/22 16:43 Temperature 99.5 F H 99.1 F Temperature Source Oral Pulse Rate 64 65 64 Respiratory Rate 19 H 20 H 20 H Respiratory Effort Respiratory Pattern Blood Pressure 118/50 L 131/53 H Blood Pressure Mean 72 79 Pulse Ox 94 95 94 Oxygen Delivery Method Nasal Cannula Nasal Cannula Oxygen Flow Rate (L/min) 3 3 Positive well nourished General Appearance ED: NAD; Negative for pallor HEENT Reports moist mucous membranes normocephalic and atraumatic Eyes PERRL and EOMs intact bilaterally Neck no JVD Chest Wall inspection of chest normal and palpation of chest normal Resp normal respiratory effort and clear to auscultation bilaterally Auscultation: Negative for rales, rhonchi or wheezes Cardio Rate: tachycardic Rhythm: abnormal rhythm irregularly irregular GI normal to inspection, nondistended, normoactive bowel sounds Extremity normal to inspection General Extremety ED: Negative for edema General Extremity: Negative for edema Neuro oriented x3 and CN's II-XII intact bilaterally Sensorium / Orientation: awake and alert Skin no rashes or lesions noted General Skin Exam: Negative for jaundice or pallor Heart Score History: Slightly/Non-Suspicious ECG: Normal Age: >/= 65 years Risk Factors: 1 or 2 Risk Factors Score: 3 MDM MDM MDM Narrative Medical decision making narrative: Patient presenting with chest pain and shortness of breath. She has been off of her Eliquis postoperative until last evening. She had recent surgery for vaginal prolapse. Differential includes but is not limited to ACS, PE, pneumonia, pneumothorax, muscle strain, costochondritis, acute blood loss anemia, pacemaker failure, A-fib, SVT. CBC will be obtained to assess white blood cell count, hemoglobin, platelets, differential. BMP to assess white renal function, electrolytes, high-sensitivity troponin to assess for cardiac source include with the EKG and chest x-ray. Patient postoperative and has not been off of Eliquis with chest pain with tachycardia and will rule out a PE as well. EKG on my interpretation shows atrial fibrillation with RVR at a rate of 115 bpm. CBC shows a slight white blood cell count of 14.3. Hemoglobin levels at 9. This is acutely changed as it was 12.7 in August of this year. I was able to look up the read for her surgery which stated there was only 25 cc of blood loss. The patient does however state that postoperatively in her bed at [facility] she had multiple episodes of vaginal bleeding which eventually was controlled but she states she soaked through many blankets. She also reports that she was lightheaded upon standing for the first day or so but the next day she felt well. There was no recheck of her hemoglobin. Her BNP is slightly elevated today at 640 as well. I suspect that since she has been in a tachycardic rhythm since last evening she might of been pushed into heart failure because on her chest x-ray there is trace pleural effusions bilaterally. Initially she was on room air but eventually desatted to 85% and is stable on 3 L of oxygen. Because she has been off of her Eliquis and had recent surgery I did obtain a CTA of the chest which does not identify any PE or dissection. It does show the pleural effusions as well. There is no organized infiltrate noted on the CTA. Urinalysis was not convincing at the for UTI. The patient then developed a fever initially 101.9 and then 102.5. She was given Tylenol. I then tested her with a rapid COVID and influenza and these were negative. Since the patient's hemoglobin was low I did do an occult stool and this is positive. She does not report any black or bloody stools but she is on Eliquis and restarted yesterday. Currently she is normotensive. Given the patient is postoperative with a fever I did call her surgeon Dr. Kellogg, and reviewed the case with him. Given that she has a postoperative fever and anemia he felt like it was reasonable to have her be transferred to [facility] for monitoring. He recommended a dose of Zosyn. Since she already had a CT done today we will hold off on a CT scan of her abdomen pelvis. She is not having any pain in her abdomen. She describes minimal vaginal spotting currently. We did discuss doing a viral respiratory panel as well as a COVID PCR. I did obtain blood cultures prior to starting Zosyn. Urinalysis was cultured as well. Patient counseled on all findings and the plan and she is amenable to this. She is transferred in stable condition. Impression: 1. Acute blood loss anemia 2. Leukocytosis 3. Postoperative fever 4. GI bleed 5. A-fib with RVR 6. CHF 7. Pleural effusion Lab Data Labs: Laboratory Results - last 24 hr 10/08/22 10/08/22 10/08/22 10:22 10:22 10:22 WBC 14.3 H RBC 2.92 L Hgb 9.0 L Hct 28.5 L MCV 97.6 MCH 30.8 MCHC 31.6 L RDW Std Deviation 48.0 H RDW Coeff of Katya 13.6 Plt Count 244 MPV 10.5 Immature Gran % (Auto) 1.100 H Neut % (Auto) 82.0 H Lymph % (Auto) 9.1 L Kemper % (Auto) 7.4 Eos % (Auto) 0.2 Baso % (Auto) 0.2 Absolute Neuts (auto) 11.7 H Absolute Lymphs (auto) 1.29 Nucleated RBC % 0.2 Sodium 141 Potassium 3.7 Chloride 105 Carbon Dioxide 29.0 Anion Gap 7 BUN 23 H Creatinine 0.88 Estim Creat Clear Calc 52.00 Est GFR (MDRD) Af Amer 82 Est GFR (MDRD) Non-Af 67 BUN/Creatinine Ratio 26.3 H Glucose 119 H Calcium 8.6 Troponin I High Sens 7 B-Natriuretic Peptide 640.4 H Urine Color Urine Clarity Urine pH Ur Specific Kirkwood Urine Protein Urine Glucose (UA) Urine Ketones Urine Occult Blood Urine Nitrite Urine Bilirubin Urine Urobilinogen Ur Leukocyte Esterase Urine RBC Urine WBC Ur Squamous Epith Cells Ur Transition Epith Cell Urine Bacteria Urine Mucus 10/08/22 10/08/22 11:01 12:33 WBC RBC Hgb Hct MCV MCH MCHC RDW Std Deviation RDW Coeff of Katya Plt Count MPV Immature Gran % (Auto) Neut % (Auto) Lymph % (Auto) Kemper % (Auto) Eos % (Auto) Baso % (Auto) Absolute Neuts (auto) Absolute Lymphs (auto) Nucleated RBC % Sodium Potassium Chloride Carbon Dioxide Anion Gap BUN Creatinine Estim Creat Clear Calc Est GFR (MDRD) Af Amer Est GFR (MDRD) Non-Af BUN/Creatinine Ratio Glucose Calcium Troponin I High Sens 8 B-Natriuretic Peptide Urine Color Yellow Urine Clarity Sl. Cloudy Urine pH 7.0 Ur Specific Kirkwood 1.010 Urine Protein 30 H Urine Glucose (UA) Normal Urine Ketones Negative Urine Occult Blood 250 H Urine Nitrite Negative Urine Bilirubin Negative Urine Urobilinogen Normal Ur Leukocyte Esterase 500 H Urine RBC 25-50 SEEN Urine WBC 25-50 SEEN Ur Squamous Epith Cells 0-5 SEEN Ur Transition Epith Cell 0-5 SEEN Urine Bacteria 1+ Urine Mucus 0 SEEN Radiography Diagnostic Testing: Clinical Impression(s) from Imaging Studies Chest X-Ray 10/08/22 10:03 IMPRESSION: Blunting of the right costophrenic angle is developed since previous study suggesting small right pleural effusion with likely associated atelectasis. Follow-up recommended to assure resolution Electronically Signed: Pepe Basilio MD at 10:20 EDT Reading Location ID and State: [facility] / [place] , Service support , Chest CTA 10/08/22 11:18 IMPRESSION: No demonstrated PE, or thoracic aortic aneurysm or dissection Chronic interstitial changes in both lung pena with small bilateral pleural effusions and bibasilar atelectasis. No organized infiltrate. There is evidence of chronic bronchitis No suspicious adenopathy Degenerative bony changes Electronically Signed: Pepe Basilio MD at 11:41 EDT , Discharge Plan Triage Chief Complaint: Weakness ED Provider: Luis Laureano Dx/Rx/DC Orders Prescriptions: No Action cholecalciferol (vitamin D3) 400 unit tablet 10 mcg (400 unit) tablet 2,000 unit PO BID multivitamin tablet 1 tab PO ONCE omega-3 fatty acids 1,000 mg capsule 1,000 mg PO DAILY cranberry 500 mg capsule 500 mg PO BID B-complex with vitamin C Tablet 1 tab PO DAILY calcium carbonate [Calcium 500] 500 mg calcium (1,250 mg) tablet 500 mg PO BID loratadine 10 mg tablet 10 mg PO DAILY selenium 200 mcg tablet PO Label Comments: take 1 tablet by mouth once daily raloxifene 60 mg tablet 60 mg PO DAILY Label Comments: TAKE ONE TABLET BY MOUTH ONCE DAILY lansoprazole 30 mg capsule,delayed release(DR/EC) 30 mg PO DAILY PRN (Reason: stomach acid) Label Comments: TAKE ONE CAPSULE BY MOUTH EVERY DAY as needed apixaban [Eliquis] 5 mg tablet See Rx Instructions .ROUTE .COMPLEX Qty: 180 3RF Dose Instruction: take 1 tablet by mouth twice a day Rx Instructions: take 1 tablet by mouth twice a day atenolol 25 mg tablet 25 mg PO DAILY Qty: 90 3RF Hold Instructions: Low BP amiodarone 200 mg tablet 200 mg PO DAILY Qty: 90 3RF Primary Care Provider: Hilario Amaral Referrals: Hilario Amaral MD [Primary Care Provider] -
--- NOTE | 2022-10-08 10:03 | RAD_ITS ---
STUDY: X-RAY CHEST REASON FOR EXAM: Female, 72 years old. Chest pain TECHNIQUE: Single AP portable view of the chest. COMPARISON: 01/27/2021 FINDINGS: EKG leads overlie the chest. Stable appearance of the left subclavian pacemaker Lungs are expanded, left lung is clear, development of opacification in the right cardiophrenic angle since previous study suggests effusion. Normal size heart. Normal mediastinum and daniel. Normal visualized pulmonary arteries. Normal visualized aortic arch and descending thoracic aorta. Normal visualized thoracic spine. Normal visualized ribs, clavicles, and shoulders. There is no demonstrated abnormality of the visualized soft tissue structures of the upper abdomen. RAD/Chest 1 View (Portable) IMPRESSION: Blunting of the right costophrenic angle is developed since previous study suggesting small right pleural effusion with likely associated atelectasis. Follow-up recommended to assure resolution Electronically Signed: Pepe Basilio MD at 10:20 EDT ,
[2022-10-08] MEDS: dilTIAZem 25 MG/5 ML Vial 20 MG IV BOLUS (10:19)
[2022-10-08] MEDS: 0.9% Normal Saline 1,000 ML 1000 ML IV (10:19)
[2022-10-08 10:29] LABS: Absolute Lymphocyte Count 1.29 X10^3/uL (0.83-4.51); Absolute Neutrophil Count 11.7 X10^3/uL (2.0-7.7); Basophil# 0.03 X10^3/uL; Basophil% 0.2 % (0-1); Eosinophil# 0.03 X10^3/uL; Eosinophils% 0.2 % (0-5); Hematocrit 28.5 % (37-47); Lymphocyte # 1.29 X10^3/ul (0.83-4.51); Lymphocyte % 9.1 % (19-41); Mean Corp Hgb Conc 31.6 g/dL (32-36); Mean Corpuscular Hgb 30.8 pg (27.0-32.0); Mean Corpuscular Volume 97.6 fL (81-99); Mean Platelet Vol. 10.5 fl (6.2-12.0); Monocyte# 1.06 X10^3/uL; Monocyte% 7.4 % (0-10); NRBC Flagged by Analyzer 0.2 % (0-5); Neutrophil # 11.68 X10^3/uL (2.7-7.7); Platelet Count 244 K/mm3 (150-450); RBC Distribution Width CV 13.6 % (11.6-14.6); Red Blood Count 2.92 M/mm3 (4.2-5.4); White Blood Count 14.3 K/mm3 (4.4-11.0)
[2022-10-08 10:45] LABS: Anion Gap 7 (5-15); BUN 23 mg/dL (7-18); BUN/Creat Ratio 26.3 RATIO (10-20); Calcium,Total 8.6 mg/dL (8.5-10.1); Chloride 105 mmol/L (98-107); Creatinine, Serum 0.88 mg/dL (0.55-1.02); EST Glomerular Filtration Rate 67 mL/min (>60); Est Glom Filt Rate - Afr Amer 82 mL/min (>60); Glucose 119 mg/dL (74-106); Potassium 3.7 mmol/L (3.5-5.1); Sodium Level 141 mmol/L (136-145); Troponin-I HS (w/2H Reflex) 7 pg/mL (3.0-54.0)
[2022-10-08 10:50] LABS: BNP,B-Type NATRIURETIC PEPTIDE 640.4 pg/mL (0-100)
[2022-10-08 11:05] LABS: Mucous, Urine 0 SEEN /hpf (<or=2+)
[2022-10-08 11:12] LABS: Color, Urine Yellow (Yellow); Glucose, Dipstick Normal (Normal); Ketone-Dipstick Negative (Negative); Leukocyte Esterase-Dipstick 500 /ul (Negative); Nitrite-Dipstick Negative (Negative); Occult Blood-Urine 250 /ul (Negative); Protein-Dipstick 30 mg/dl (Negative); Urine Bilirubin Dipstick Negative (Negative); Urine Clarity Sl. Cloudy (Clear); Urine Urobilinogen Normal (Normal)
[2022-10-08 11:18] LABS: Bacteria 1+ /hpf (None Seen); Red Blood Cells-Urine 25-50 SEEN /hpf (0-5)
--- NOTE | 2022-10-08 11:18 | CT_ITS ---
STUDY: CTA CHEST REASON FOR EXAM: Female, 72 years old. Atypical chest pain, diaphoresis RADIATION DOSAGE (If Supplied By Facility): CTDIvol = ( 11.40 ) mGy, DLP = ( 436.13 ) mGy TECHNIQUE: The examination was performed with the intravenous administration of IV 100mL [id number]-[id number]. Post-processing of the angiographic images was performed, with multiplanar reformation and 3D reconstruction. Individualized dose optimization techniques were used for this CT. COMPARISON: None. FINDINGS: Normal enhancement of the main pulmonary artery and right and left pulmonary arteries. Normal enhancement of the bilateral peripheral pulmonary arteries. There is no demonstrated pulmonary embolism. Normal thoracic aorta and visualized great vessels. There is no demonstrated aortic dissection. Normal heart and pericardium. No coronary artery calcifications noted, pacer leads seen along the base of the heart Scattered subcentimeter in short axis dimension, likely physiologic, axillary and mediastinal lymph nodes. No suspicious perihilar adenopathy There is peribronchial thickening. The lungs are well expanded. Chronic interstitial changes noted in both lung pena with small bilateral pleural effusions, and bibasilar atelectasis. Normal pleura. Normal chest wall structures. There are degenerative changes of thoracic spine. Normal visualized upper abdomen. CT/CTA Chest W/WO Contrast IMPRESSION: No demonstrated PE, or thoracic aortic aneurysm or dissection Chronic interstitial changes in both lung pena with small bilateral pleural effusions and bibasilar atelectasis. No organized infiltrate. There is evidence of chronic bronchitis No suspicious adenopathy Degenerative bony changes Electronically Signed: Pepe Basilio MD at 11:41 EDT ,
[2022-10-08 11:19] LABS: Squamous Epithelial Cells - UA 0-5 SEEN /hpf (5-10); Transitional Epithelial - Ur 0-5 SEEN /hpf (0-5); White Blood Cells 25-50 SEEN /hpf (0-5)
[2022-10-08] MEDS: Acetaminophen 500 MG Tablet 1000 MG PO (11:46)
[2022-10-08 12:26] LABS: Reflex Troponin-HS? (from REC) Y
[2022-10-08 12:55] LABS: Troponin-I HS 8 pg/mL (3.0-54.0)
== END 2022-10-08 17:56 | disposition short-term general hospital (02) ==
LOC: ED 09:54
PROVIDERS: Emergency Provider Student in an Organized Health Care Education/Training Program; PCP Family Medicine; Visit Provider Student in an Organized Health Care Education/Training Program
DX: D62 Acute posthemorrhagic anemia (principal); I11.0 Hypertensive heart disease with heart failure; I50.9 Heart failure, unspecified; I48.91 Unspecified atrial fibrillation; I48.0 Paroxysmal atrial fibrillation; K92.2 Gastrointestinal hemorrhage, unspecified; Z87.891 Personal history of nicotine dependence; N93.9 Abnormal uterine and vaginal bleeding, unspecified; D72.829 Elevated white blood cell count, unspecified; R19.5 Other fecal abnormalities; E78.5 Hyperlipidemia, unspecified; R50.82 Postprocedural fever; J90 Pleural effusion, not elsewhere classified; R06.02 Shortness of breath; R07.9 Chest pain, unspecified
CPT/HCPCS: 36415; 71045; 71275; 80048; 81001; 82274; 83880; 84484; 85025; 87040; 87086; 87088; 87428; 87633; 87635; 93005; 96361; 96365; 99284; J7030; J7050; Q9967; A4216; U0003; U0005

== ENCOUNTER → 2022-10-15 | Outpatient (CLI) | payer MEDICARE, SELFPAY ==
[2022-10-15 17:50] LABS: Hematocrit 31.3 % (37-47); Hemoglobin 9.5 g/dL (12.0-15.0); Mean Corp Hgb Conc 30.4 g/dL (32-36); Mean Corpuscular Hgb 30.6 pg (27.0-32.0); Mean Platelet Vol. 10.6 fl (6.2-12.0); Platelet Count 422 K/mm3 (150-450); RBC Distribution Width CV 14.6 % (11.6-14.6); White Blood Count 12.2 K/mm3 (4.4-11.0)
== END | disposition home or self-care (01) ==
LOC: MFPLAB 14:36
PROVIDERS: Nurse Practitioner Family; PCP Family Medicine; Visit Provider Family Medicine
DX: D64.9 Anemia, unspecified (principal)
CPT/HCPCS: 36415; 85027

== ENCOUNTER → 2022-11-06 | Outpatient (CLI) | payer MEDICARE, SELFPAY ==
[2022-11-06 12:36] LABS: Absolute Lymphocyte Count 1.25 X10^3/uL (0.83-4.51); Basophil# 0.02 X10^3/uL; Basophil% 0.3 % (0-1); Eosinophil# 0.14 X10^3/uL; Eosinophils% 2.4 % (0-5); Hematocrit 37.2 % (37-47); Hemoglobin 11.6 g/dL (12.0-15.0); Lymphocyte # 1.25 X10^3/ul (0.83-4.51); Lymphocyte % 21.6 % (19-41); Mean Corp Hgb Conc 31.2 g/dL (32-36); Mean Corpuscular Hgb 30.9 pg (27.0-32.0); Mean Corpuscular Volume 98.9 fL (81-99); Mean Platelet Vol. 10.1 fl (6.2-12.0); Monocyte# 0.37 X10^3/uL; Monocyte% 6.4 % (0-10); NRBC Flagged by Analyzer 0 % (0-5); Neutrophil # 3.99 X10^3/uL (2.7-7.7); Neutrophil % 69.1 % (47-70); Platelet Count 295 K/mm3 (150-450); RBC Distribution Width CV 13.3 % (11.6-14.6); RBC Distribution Width SD 48.3 fl (35.1-43.9); Red Blood Count 3.76 M/mm3 (4.2-5.4); Reticulocyte Count 1.24 % (0.5-1.5); White Blood Count 5.8 K/mm3 (4.4-11.0)
[2022-11-06 12:48] LABS: Erythrocyte Sedimentation Rate 15 mm/hr (0-30)
[2022-11-06 12:57] LABS: Vitamin B12 608 pg/mL (211-911)
[2022-11-06 13:35] LABS: ALB/GLOB Ratio 0.9 RATIO (0.9-2.4); AST(SGOT) 25 U/L (15-37); Alanine Aminotransfer ALT/SGPT 35 U/L (13-56); Albumin, Serum 3.1 g/dL (3.2-5.0); Alkaline Phosphatase 78 U/L (45-117); Anion Gap 5 (5-15); BUN 20 mg/dL (7-18); BUN/Creat Ratio 25.2 RATIO (10-20); Calcium,Total 8.3 mg/dL (8.5-10.1); Chloride 108 mmol/L (98-107); Creatinine, Serum 0.79 mg/dL (0.55-1.02); EST Glomerular Filtration Rate 75 mL/min (>60); Est Glom Filt Rate - Afr Amer 91 mL/min (>60); Ferritin 194 ng/mL (8-252); Globulin 3.4 g/dL (2.2-4.2); Glucose 90 mg/dL (74-106); Iron Binding Capacity,Total 287 ug/dL (250-450); Potassium 3.6 mmol/L (3.5-5.1); Protein, Total 6.5 g/dL (6.4-8.2); Sodium Level 141 mmol/L (136-145)
== END | disposition home or self-care (01) ==
LOC: MFPLAB 10:49
PROVIDERS: PCP Family Medicine; Referring Provider Family Medicine; Visit Provider Family Medicine
DX: D64.9 Anemia, unspecified (principal)
CPT/HCPCS: 36415; 80053; 82607; 82728; 82746; 83550; 85025; 85045; 85652

== ENCOUNTER → 2023-01-01 | Outpatient (CLI) | payer MEDICARE, SELFPAY ==
[2023-01-01 13:18] LABS: Vitamin B12 1355 pg/mL (211-911)
[2023-01-01 13:28] LABS: Iron 74 ug/dL (50-170); Thyroid Stim Hormone (TSH) 3.25 uIU/mL (0.358-3.74)
== END | disposition home or self-care (01) ==
LOC: MFPLAB 09:53
PROVIDERS: PCP Family Medicine; Visit Provider Nurse Practitioner Family
DX: D64.9 Anemia, unspecified (principal); E05.90 Thyrotoxicosis, unspecified without thyrotoxic crisis or storm
CPT/HCPCS: 36415; 82607; 83540; 84443

== ENCOUNTER → 2023-01-07 | Outpatient (CLI) | payer MEDICARE, SELFPAY ==
--- NOTE | 2023-01-07 11:27 | RAD_ITS ---
EXAM: XR LEFT KNEE COMPLETE, 4 OR MORE VIEWS CLINICAL INDICATION: Left knee pain; no known injury TECHNIQUE: Four or more views of the left knee. COMPARISON: No relevant prior studies available. FINDINGS: BONES/JOINTS: Unremarkable. No acute fracture. No subluxation. Normal alignment. Preservation of the joint space. No sclerotic or destructive changes observed. SOFT TISSUES: Unremarkable. No soft tissue swelling or gas. No radiopaque foreign body. RAD/Knee 4 or More Views IMPRESSION: Negative left knee x-rays. Electronically Signed: Yfn Salas MD at 1:12 EDT ,
[2023-01-07 15:30] LABS: Hematocrit 41.1 % (37-47); Hemoglobin 12.6 g/dL (12.0-15.0); Mean Corp Hgb Conc 30.7 g/dL (32-36); Mean Corpuscular Volume 97.9 fL (81-99); Mean Platelet Vol. 10.6 fl (6.2-12.0); Platelet Count 253 K/mm3 (150-450); RBC Distribution Width CV 12.8 % (11.6-14.6); RBC Distribution Width SD 45.5 fl (35.1-43.9); White Blood Count 6.5 K/mm3 (4.4-11.0)
== END | disposition home or self-care (01) ==
LOC: MTLAB 11:26
PROVIDERS: PCP Family Medicine; Referring Provider Nurse Practitioner Family; Visit Provider Nurse Practitioner Family
DX: M25.569 Pain in unspecified knee (principal); D64.9 Anemia, unspecified
CPT/HCPCS: 36415; 73564; 85027

== ENCOUNTER → 2023-02-22 | Outpatient (CLI) | payer MEDICARE, SELFPAY ==
--- NOTE | 2023-02-22 10:03 | BI_ITS ---
MAMMOGRAPHY - BILATERAL SCREENING REASON FOR EXAM: Female, 73 years old. Routine annual screening examination. PERTINENT HISTORY: Sister with breast cancer. Mother with breast cancer. TECHNIQUE: Digital bilateral breast shirin (3D mammographic acquisition) in the CC and MLO projections. 2-D mediolateral oblique (MLO) and craniocaudad (CC) views of both breasts were obtained. CAD: Full Field Digital Mammography with Computer Added Detection was performed. COMPARISON: Comparison is made with prior study dated February 20, 2022. FINDINGS: Breast Composition: There are scattered areas of fibroglandular density. There are no dominant masses or suspicious calcifications. A pacemaker battery pack is seen in the left axilla. No other significant abnormalities are identified. There has been no significant change since the prior study. BI/SCRN MAMM (CAD)W/SHIRIN BILAT IMPRESSION: Stable bilateral screening mammogram. Yearly follow-up mammogram recommended. (A) ASSESSMENT CATEGORY: BIRADS Category 2: Benign. A letter regarding these results will be sent to the patient by the facility within 30 days. Approximately 10% of breast cancers are not detected by mammography. A normal mammogram should not delay biopsy of a clinically suspicious abnormality. [id number] Electronically Signed: Rik Vasquez MD at 12:21 EDT ,
== END | disposition home or self-care (01) ==
LOC: OPBI 10:02
PROVIDERS: PCP Family Medicine; Referring Provider Family Medicine; Visit Provider Family Medicine
DX: Z12.31 Encounter for screening mammogram for malignant neoplasm of breast (principal); Z80.3 Family history of malignant neoplasm of breast
CPT/HCPCS: 77063; 77067

== ENCOUNTER → 2023-02-25 | Outpatient (CLI) | payer MEDICARE, SELFPAY ==
[2023-02-25 11:26] LABS: EST Glomerular Filtration Rate 74 mL/min (>60); Est Glom Filt Rate - Afr Amer 90 mL/min (>60)
== END | disposition home or self-care (01) ==
LOC: LAB 10:16
PROVIDERS: PCP Family Medicine; Referring Provider Specialist; Visit Provider Specialist
DX: M25.562 Pain in left knee (principal)
CPT/HCPCS: 36415; 82565

== ENCOUNTER → 2023-03-13 | Outpatient (CLI) | payer MEDICARE, SELFPAY ==
--- NOTE | 2023-03-13 13:10 | MRI_ITS ---
STUDY: MRI LEFT KNEE REASON FOR EXAM: Female, 73 years old. Knee pain and effusion. TECHNIQUE: Standardized fat and water weighted pulse sequences were obtained in all 3 orthogonal planes. COMPARISON: None. FINDINGS: Horizontal cleavage tear of the posterior horn of the medial meniscus with truncation of the posterior horn and body and mild extrusion of the remnant of the body (sagittal series 4 images 4-11, coronal series 6 images 12-17). Marked thinning of the articular cartilage of the medial femorotibial compartment with reactive subchondral bone marrow edema and small osteophytes (coronal series 6 images 11-19). Mild MCL sprain (coronal series 6 images 12-15). Normal distal semimembranosus, gracilis and semitendinosus tendons. Normal lateral meniscus. Mild thinning of the articular cartilage of the lateral femorotibial compartment (coronal series 6 images 10-17). Normal lateral femoral condyle and tibial plateau. Normal proximal tibiofibular articulation. Normal lateral collateral (fibular) ligament. Normal popliteus tendon. Normal biceps femoris tendon. Normal anterior cruciate ligament (ACL). Normal posterior cruciate ligament (PCL). Normal congruent patellofemoral articulation. Mild thinning of the articular cartilage of the patellofemoral compartment with minimal reactive subchondral bone marrow edema in the patella (axial series 2 images 9-16). Normal medial and lateral patellar retinaculum. Normal quadriceps tendon. Normal patellar tendon. Normal Hoffa''s fat pad. Small joint effusion with dissecting septated popliteal cyst (axial series 2 images 8-16). Marked prepatellar subcutaneous soft tissue edema (sagittal series 4 images 11-16). The remainder of the visualized osseous structures are normal. MRI/Lower Ext Joint Only (Routine) IMPRESSION: Horizontal cleavage tear posterior horn of the medial meniscus with truncation of the posterior horn and body and mild extrusion of the remnant of the body of the medial meniscus. Marked thinning of the articular cartilage of the medial femorotibial compartment. Mild MCL sprain. Mild thinning of the articular cartilage of the lateral femorotibial and patellofemoral compartments. Marked prepatellar subcutaneous soft tissue edema. Small joint effusion with dissecting septated popliteal cyst. Electronically Signed: Juarez Guillen MD at 15:35 EDT ,
[2023-03-13 13:30] VITALS: BP 137/77; PULSE 60; RESP 16; O2SAT 93
[2023-03-13 13:45] VITALS: BP 146/74; PULSE 80; RESP 16; O2SAT 92
[2023-03-13 14:00] VITALS: BP 154/75; PULSE 80; RESP 16; O2SAT 90
[2023-03-13 14:11] VITALS: BP 160/67; PULSE 60; RESP 16; O2SAT 97
== END | disposition home or self-care (01) ==
PROVIDERS: PCP Family Medicine; Referring Provider Specialist; Visit Provider Specialist
DX: M25.462 Effusion, left knee (principal); M25.562 Pain in left knee
CPT/HCPCS: 73721

== ENCOUNTER → 2023-08-19 | Outpatient (CLI) | payer MEDICARE, SELFPAY ==
--- NOTE | 2023-08-19 10:11 | RAD_ITS ---
INDICATION: CHEST PAIN/SOB EXAMINATION/TECHNIQUE: X-RAY - XR Chest 2 Views COMPARISON: Prior study dated: 10/08/2022 FINDINGS: LINES/DEVICES: Left-sided dual-chamber pacemaker in stable position. LUNGS: No consolidation, edema or effusion. No pneumothorax. MEDIASTINUM AND CARDIOVASCULAR STRUCTURES: Cardiac silhouette not enlarged. Central airways and mediastinal contour are unremarkable. BONES AND SOFT TISSUES: Unremarkable. RAD/Chest PA and Lateral IMPRESSION: No radiographic evidence of acute cardiopulmonary disease. Electronically Signed: Ernie Young MD at 10:31 EST ,
--- OUTSIDE RECORDS SUMMARY | 2023-08-19 11:32 | XMS RPT_ITS | CCD ---
Author Name Unknown Address [id number] [place] [address] Organization [facility] Care Team Providers Care Ammonia Box Operator Name Role Phone Michele Amaral Unavailable REKHA Rainey, Sindhu Ford Unavailable Unavaillidia Rainey RN, Sindhu Ford Unavailable Unavaillidia Herbert RN, Tania Temple Unavailable Unavailable Michele Amaral Unavailable Munir MARTIN, Diana Euceda Primary Care Provider [phone] DIANA AMARAL Primary Care Unavailable WENDY TRIANA Attending Unavailable DIANA AMARAL Primary Care Unavailable BENI GOLDEN Referring Unavailable DIANA AMARAL Primary Care Unavailable DIANA AMARAL Primary Care Unavailable ANABELA SALVADOR CNP Attending Unavailable ANABELA SALVADOR CNP Admitting Unavailable DIANA AMARAL Primary Care Unavailable ARTUR LEBLANC CRNA Consulting UnavailNICOLE Esquivel MD Attending Unavailab NICOLE Rivas MD Admitting Unavailab AMELIA Duran DO Consulting Unavailable NICOLE CHAMORRO MD Admitting Unavailab DIANA Bingham Primary Care Unavailable AGATHA PIEDRA DO Consulting UnavailNICOLE Esquivel MD Attending Unavailab Yash MARTIN, Diana Temple Primary Care Provider [phone] YARI HUGO Attending Unavailable DIANA AMARAL Primary Care Unavailable Allergies Allergy Classification Reported Allergen(s) Allergy Type Date of Onset Reaction(s) Facility (10 sources) chlorhexidine; Translations: [CHLORHEXIDINE] drug allergy 9 [facility] Work Phone: (5 sources) estradiol drug allergy 4 [facility] Work Phone: (9 sources) naproxen; Translations: [NAPROXEN] drug allergy 0 GI Upset [facility] Work Phone: (5 sources) NEGRAM (QUININE FAMILY) drug allergy 2 [facility] Work Phone: (5 sources) ENVIROMENTAL drug allergy 2 [facility] Work Phone: (4 sources) Estradiol; Translations: [ESTRADIOL] Drug Allergy 2 Swelling [facility] Work Phone: (1 source) environmental [Other] Propensity to adverse reactions 8 [facility] Work Phone: (1 source) OTHER; Translations: [OTHER] Propensity to adverse reactions (disorder) 8 [facility] Repository Medications Current Medications Medication Drug Class(es) Dates Sig (Normalized) Sig (Original) amiodarone hydrochloride 200 mg oral tablet (1 source) Antiarrhythmic Start: 08-05-2023 amiodarone (Pacerone) 200 mg tablet amoxicillin 875 mg oral tablet (1 source) Penicillin-class Antibacterial Start: 08-16-2023 End: 08-26-2023 take 1 tablet by mouth twice daily at mealtime amoxicillin (Amoxil) 875 mg tablet Indications: Acute sinusitis, recurrence not specified, unspecified location Take 1 tablet (875 mg) by mouth 2 times a day for 10 days. Take with food. 20 tablet 0 08/16/2023 08/26/2023 Active apixaban 5 mg oral tablet (8 sources) Factor Xa Inhibitor Start: 12-07-2016 apixaban (Eliquis) 5 mg tablet Take by mouth twice a day. 0 06/27/2017 Active Completed/Discontinued Medications Medication Drug Class(es) Dates Sig (Normalized) Sig (Original) Biotin (2 sources) Start: 01-17-2017 take 1 tablet by mouth once daily BIOTIN FORTE TABS One tablet by mouth daily BIOTIN TABS [id number] Farooq Cervantes MD Calcium (11 sources) Phosphate Binder, Calcium Start: 03-02-2010 CALCIUM 500 MG TAB Take one(1) tablet three times daily. 0 03/02/2010 Active Problems Active Problems Problem Classification Problem Date Documented Date Episodic/Chronic Abdominal pain (2 sources) Right flank pain; Translations: [Unspecified abdominal pain] Onset: 03-04-2013 03-04-2013 Episodic Cardiac dysrhythmias (14 sources) Supraventricular tachycardia; Translations: [Paroxysmal atrial fibrillation] Onset: 07-08-2014 07-08-2014 Chronic Cardiac dysrhythmias (7 sources) Palpitations; Translations: [Tachycardia] Onset: 07-08-2014 07-08-2014 Episodic Chronic obstructive pulmonary disease and bronchiectasis (1 source) Chronic obstructive pulmonary disease, unspecified; Translations: [COPD UNSPECIFIED] Onset: 10-18-2022 Chronic Conduction disorders (1 source) Presence of cardiac pacemaker; Translations: [PRESENCE OF CARDIAC PACEMAKER] Onset: 10-18-2022 Chronic Deficiency and other anemia (1 source) Anemia, unspecified; Translations: [ANEMIA UNSPECIFIED] Onset: 10-18-2022 Episodic Diseases of white blood cells (1 source) Elevated white blood cell count, unspecified; Translations: [ELEVATED WHITE BLOOD CELL COUNT UNS] Onset: 10-18-2022 Chronic Disorders of lipid metabolism (5 sources) Hyperlipidemia; Translations: [Hyperlipidemia, unspecified] Onset: 02-02-2015 02-02-2015 Chronic Diverticulosis and diverticulitis (1 source) Diverticular disease; Translations: [Diverticulosis of intestine, part unspecified, without perforation or abscess without bleeding] Onset: 01-12-2015 01-12-2015 Chronic Esophageal disorders (2 sources) Gastroesophageal reflux disease; Translations: [Gastro-esophageal reflux disease without esophagitis] Onset: 10-18-2022 06-01-2016 Chronic Essential hypertension (6 sources) Hypertensive disorder; Translations: [Essential (primary) hypertension] Onset: 07-08-2014 07-08-2014 Chronic Fever of unknown origin (1 source) Fever, unspecified; Translations: [FEVER UNSPECIFIED] Onset: 10-18-2022 Episodic Fluid and electrolyte disorders (1 source) Hypokalemia; Translations: [HYPOKALEMIA] Onset: 10-18-2022 Episodic Genitourinary symptoms and ill-defined conditions (1 source) Mixed incontinence; Translations: [MIXED INCONTINENCE] Onset: 10-11-2022 Chronic Genitourinary symptoms and ill-defined conditions (2 sources) Personal history of urinary (tract) infections; Translations: [Frequency of micturition] Onset: 10-11-2022 Episodic Headache; including migraine (1 source) Headache; including migraine; Translations: [HEADACHE UNSPECIFIED] Onset: 10-18-2022 Immunity disorders (5 sources) Immunodeficiency disorder; Translations: [Immunodeficiency, unspecified] Onset: 11-20-2011 11-20-2011 Chronic Malaise and fatigue (2 sources) Other fatigue; Translations: [Weakness] Onset: 10-18-2022 Episodic Menopausal disorders (2 sources) Atrophic vaginitis; Translations: [Postmenopausal atrophic vaginitis] Onset: 12-05-2007 12-05-2007 Chronic Menopausal disorders (1 source) Hormone replacement therapy; Translations: [HORMONE REPLACEMENT THERAPY] Onset: 10-11-2022 Episodic Osteoarthritis (1 source) Unspecified osteoarthritis, unspecified site; Translations: [UNSPECIFIED OSTEOARTHRITIS UNS SITE] Onset: 10-11-2022 Chronic Osteoporosis (1 source) Age-related osteoporosis without current pathological fracture; Translations: [AGE-REL OSTEOPOR W/O CURR PATH FX] Onset: 10-18-2022 Chronic Other aftercare (6 sources) Other correction (current) drug therapy; Translations: [Other terminal operator (current) drug therapy] Onset: 02-02-2015 02-02-2015 Episodic Other aftercare (1 source) emt intermediate (current) use of anticoagulants; Translations: [CUSTODIAL CURRNT USE ANTICOAGULANTS] Onset: 10-18-2022 Episodic Other aftercare (1 source) snf (current) use of antibiotics; Translations: [CUSTODIAL CURRENT USE ANTIBIOTICS] Onset: 10-18-2022 Episodic Other aftercare (1 source) snf (current) use of opiate analgesic; Translations: [PARACHUTE SUPERVISOR CURRNT USE OPIATE ANALGES] Onset: 10-11-2022 Episodic Other female genital disorders (1 source) Abnormal uterine and vaginal bleeding, unspecified; Translations: [ABNORMAL UTERINE VAGINAL BLEED UNS] Onset: 10-18-2022 Chronic Other female genital disorders (1 source) Other specified noninflammatory disorders of vagina; Translations: [Vaginal discharge] Onset: 07-05-2022 Episodic Other lower respiratory disease (1 source) Cough; Translations: [Subacute cough] Episodic Other upper respiratory disease (1 source) Allergic rhinitis; Translations: [Allergic rhinitis, unspecified] 01-06-2008 Chronic Other upper respiratory infections (8 sources) Sinusitis; Translations: [Acute sinusitis] Onset: 10-23-2011 10-23-2011 Episodic Prolapse of female genital organs (4 sources) Incomplete uterovaginal prolapse; Translations: [Incomplete uterovaginal prolapse] Onset: 12-05-2007 12-05-2007 Chronic Residual codes; unclassified (1 source) Obstructive sleep apnea (adult) (pediatric); Translations: [OBSTRUCTIVE SLEEP APNEA] Onset: 10-18-2022 Chronic Residual codes; unclassified (1 source) Other specified postprocedural states; Translations: [OTH SPECIFIED POSTPROCEDURAL STATES] Onset: 10-18-2022 Episodic Screening and history of mental health and substance abuse codes (2 sources) Tobacco use and exposure - finding; Translations: [Personal history of nicotine dependence] Onset: 03-04-2013 03-04-2013 Episodic Thyroid disorders (1 source) Hypothyroidism, unspecified; Translations: [HYPOTHYROIDISM UNSPECIFIED] Onset: 10-18-2022 Chronic Unclassified (1 source) Subacute cough; Translations: [Subacute cough] Onset: 06-29-2022 Unclassified (1 source) Chronic atrial fibrillation, unspecified; Translations: [CHRONIC ATRIAL FIBRILLATION UNSPEC] Onset: 10-18-2022 Past or Other Problems Problem Classification Problem Date Documented Da te Episodic/Chronic Allergic reactions (1 source) Solar degeneration; Translations: [Other skin changes due to chronic exposure to nonionizing radiation] Onset: 01-16-2013 01-16-2013 Episodic Bacterial infection; unspecified site (5 sources) Streptococcus pyogenes infection; Translations: [Streptococcal infection, unspecified site] Onset: 10-23-2011 10-23-2011 Episodic Calculus of urinary tract (1 source) Kidney stone; Translations: [Calculus of kidney] Onset: 03-04-2013 03-04-2013 Episodic Nonspecific chest pain (8 sources) Chest pain, unspecified; Translations: [Chest pain, unspecified] Onset: 07-08-2014 Resolved: 01-16-2017 01-16-2017 Episodic Other and unspecified benign neoplasm (1 source) Melanocytic nevus of upper limb; Translations: [Melanocytic nevi of unspecified upper limb, including shoulder] Onset: 2010 2010 Episodic Other and unspecified benign neoplasm (1 source) Melanocytic nevus of trunk; Translations: [Melanocytic nevi of trunk] Onset: 2010 2010 Episodic Other and unspecified benign neoplasm (1 source) Senile angioma; Translations: [Hemangioma of skin and subcutaneous tissue] Onset: 01-16-2013 01-16-2013 Episodic Other bone disease and musculoskeletal deformities (1 source) Disorder of skeletal system; Translations: [Disorder of bone, unspecified] Onset: 11-03-2008 04-15-2017 Episodic Other connective tissue disease (1 source) Triggering of digit; Translations: [Trigger finger, left middle finger] Onset: 01-31-2015 01-31-2015 Episodic Other non-epithelial cancer of skin (1 source) History of malignant neoplasm of skin; Translations: [Personal history of other malignant neoplasm of skin] Onset: 06-07-2008 06-07-2008 Episodic Other non-traumatic joint disorders (1 source) Multiple joint pain; Translations: [Pain in unspecified joint] Onset: 09-17-2012 09-17-2012 Episodic Other nutritional; endocrine; and metabolic disorders (5 sources) Body mass index (BMI) 26.0-26.9, adult; Translations: [Body mass index (BMI) 26.0-26.9, adult] Onset: 07-14-2014 07-14-2014 Episodic Other screening for suspected conditions (not mental disorders or infectious disease) (8 sources) Abnormal result of cardiovascular function study, unspecified; Translations: [Abnormal result of cardiovascular function study, unspecified] Onset: 07-08-2014 Resolved: 01-16-2017 07-08-2014 Episodic Other skin disorders (1 source) Keloid scar; Translations: [Hypertrophic scar] Onset: 06-07-2008 06-07-2008 Episodic Other skin disorders (1 source) Seborrheic keratosis; Translations: [Other seborrheic keratosis] Onset: 11-10-2008 11-10-2008 Episodic Other skin disorders (1 source) Actinic keratosis; Translations: [Actinic keratosis] Onset: 06-29-2009 06-29-2009 Episodic Other skin disorders (1 source) Sebaceous gland hypertrophy; Translations: [Other specified follicular disorders] Onset: 11-19-2010 11-19-2010 Episodic Other skin disorders (1 source) Milia; Translations: [Epidermal cyst] Onset: 11-19-2010 11-19-2010 Episodic Other skin disorders (1 source) Solar lentigo; Translations: [Other melanin hyperpigmentation] Onset: 06-26-2011 01-16-2013 Episodic Other skin disorders (1 source) Scar; Translations: [Scar conditions and fibrosis of skin] Onset: 01-16-2013 01-16-2013 Episodic Other skin disorders (1 source) Skin tag; Translations: [Other hypertrophic disorders of the skin] Onset: 01-16-2013 01-16-2013 Episodic Residual codes; unclassified (5 sources) FH: Hypertension; Translations: [Family history of ischemic heart disease and other diseases of the circulatory system] 07-14-2014 Episodic Residual codes; unclassified (1 source) Family history of breast cancer; Translations: [Family history of malignant neoplasm of breast] Onset: 12-05-2007 12-05-2007 Episodic Residual codes; unclassified (1 source) FH: Cardiovascular disease; Translations: [Family history of ischemic heart disease and other diseases of the circulatory system] Onset: 02-09-2019 02-09-2019 Episodic Spondylosis; intervertebral disc disorders; other back problems (1 source) Sciatica; Translations: [Sciatica, unspecified side] Onset: 12-28-2009 12-28-2009 Episodic Results Test Name Value Interpretation Reference Range Facil ity Vital Signs Date Time Vital Sign Value Performing Clinician Facility 08-16-2023 15:03-0500 Body height 165.1 cm Yari Hugo APRNZeis ExcelsaKARYN Work Phone: [facility] 08-16-2023 15:03-0500 Body mass index (BMI) [Ratio] 27.46 kg/m2 Yari Hugo APRNZeis [facility]celsaKARYN Work Phone: [facility] 08-16-2023 15:03-0500 Body temperature 97.9 [degF] Yari Hugo APRNZeis ExcelsaBINDERY MANAGER Work Phone: [facility] 08-16-2023 15:03-0500 Body weight 74.84 kg Yari Bethel [employer] CONTACT REPRESENTATIVE-BINDERY MANAGER Work Phone: [facility] 08-16-2023 15:03-0500 Diastolic blood pressure 82 mm[Hg] Yari Bethel [employer]ER[employer] CONTACT REPRESENTATIVE-BINDERY MANAGER Work Phone: [facility] 08-16-2023 15:03-0500 Heart rate 60 /min Yari Bethel [employer] CONTACT REPRESENTATIVE-BINDERY MANAGER Work Phone: [facility] 08-16-2023 15:03-0500 Respiratory rate 14 /min Yari Bethel [employer] CONTACT REPRESENTATIVE-BINDERY MANAGER Work Phone: [facility] 08-16-2023 15:03-0500 SaO2% (BldA) [Mass fraction] 97 % Yari Bethel [employer] CONTACT REPRESENTATIVE-BINDERY MANAGER Work Phone: [facility] 08-16-2023 15:03-0500 Systolic blood pressure 145 mm[Hg] Yari Bethel [employer] CONTACT REPRESENTATIVE-BINDERY MANAGER Work Phone: [facility] 06-29-2022 14:32-0500 Body temperature 97.11 [degF] Beni Golden MD Work Phone: [facility] 06-29-2022 14:32-0500 Body weight 70.58 kg Beni Golden MD Work Phone: [facility] 06-29-2022 14:32-0500 Diastolic blood pressure 82 mm[Hg] Beni Golden MD Work Phone: [facility] 06-29-2022 14:32-0500 Heart rate 65 /min Beni Golden MD Work Phone: [facility] 06-29-2022 14:32-0500 Respiratory rate 18 /min Beni Golden MD Work Phone: [facility] 06-29-2022 14:32-0500 SaO2% (BldA) [Mass fraction] 97 % Beni Golden MD Work Phone: [facility] 06-29-2022 14:32-0500 Systolic blood pressure 142 mm[Hg] Beni Golden MD Work Phone: [facility] 01-17-2017 14:13-0400 BMI (Body Mass Index) 25.45 kg/m2 [facility] Work Phone: 01-17-2017 14:13-0400 BP Diastolic 54 mm[Hg] [facility] Work Phone: 01-17-2017 14:13-0400 BP Systolic 120 mm[Hg] [facility] Work Phone: 01-17-2017 14:13-0400 Height 166.37 cm [facility] Work Phone: 01-17-2017 14:13-0400 Pulse (Heart Rate) 68 /min [facility] Work Phone: 01-17-2017 14:13-0400 Respiratory Rate 20 /min [facility] Work Phone: 01-17-2017 14:13-0400 Weight 70.44 kg [facility] Work Phone: 11-16-2016 12:22-0400 BMI (Body Mass Index) 25.56 kg/m2 [facility] Work Phone: 11-16-2016 12:22-0400 BP Diastolic 70 mm[Hg] [facility] Work Phone: 11-16-2016 12:22-0400 BP Systolic 160 mm[Hg] [facility] Work Phone: 11-16-2016 12:22-0400 Height 166.37 cm REK[facility] Work Phone: 11-16-2016 12:22-0400 Pulse (Heart Rate) 60 /min [facility] Work Phone: 11-16-2016 12:22-0400 Respiratory Rate 18 /min [facility] Work Phone: 11-16-2016 12:22-0400 Weight 70.76 kg REK[facility] Work Phone: 01-20-2015 10:45-0400 BSA (Body Surface Area) 1.8 m2 [facility] Work Phone: 10-23-2011 15:53-0400 Body Temperature 96.9 [degF] [facility] Work Phone: 10-23-2011 15:53-0400 Pulse Oximetry 97 % [facility] Work Phone: Encounters Encounter Date Encounter Type Care Provider Facility Start: 08-16-2023 End: 08-16-2023 ambulatory [facility] Start: 08-16-2023 End: 08-16-2023 Patient encounter procedure Yarisierra Osoriota [employer] CONTACT REPRESENTATIVE-BINDERY MANAGER Work Phone: [facility] Procedures Date Procedure Procedure Detail Performing Clinician Start: 02-16-2021 Mammography Beni thomas MD Work Phone: Start: 01-17-2017 End: 01-17-2017 Follow Up Appt 6 months Logan Abbott Start: 01-17-2017 End: 01-17-2017 DAGO Cervantes MD Start: 11-16-2016 End: 01-17-2017 GEOVANNA Cervantes MD Start: 11-16-2016 End: 01-17-2017 Follow Up Appt Other Farooq Cervantes MD Start: 10-12-2016 End: 10-12-2016 Follow Up Appt 6 months Logan Abbott Start: 10-12-2016 End: 10-12-2016 MMM Farooq Cervantes MD Start: 01-23-2016 Lipid 1996 panel - S omer or Plasma Yari Bethel [employer] CONTACT REPRESENTATIVE-BINDERY MANAGER Work Phone: Start: 01-23-2016 End: 11-14-2016 *Hepatic Function Panel Logan Abbott Start: 01-23-2016 End: 11-14-2016 Lipid panel [AGGREGATE] Logan Abbott Start: 01-20-2015 End: 01-20-2015 *Hepatic Function Panel Logan Abbott Start: 01-20-2015 End: 01-20-2015 GEOVANNA Cervantes MD Start: 01-20-2015 End: 01-21-2015 Documentation of current medications Farooq Cervantes MD Start: 01-20-2015 End: 01-20-2015 Follow Up Appt 1 year Farooq Cervantes MD Start: 01-20-2015 End: 01-20-2015 Lipid panel [AGGREGATE] Logan Abbott Start: 07-14-2014 End: 07-26-2014 *Hepatic Function Panel Logan Abbott Start: 07-14-2014 End: 07-14-2014 GEOVANNA Cervantes MD Start: 07-14-2014 End: 07-14-2014 Follow Up Appt 6 months Logan Abbott Start: 07-14-2014 End: 07-26-2014 Lipid panel [AGGREGATE] Logan Abbott Start: 11-20-2011 End: 11-20-2011 *SPEP (Serum Protein Electrophoresis) Dianna J Signs MD Start: 11-20-2011 End: 11-20-2011 Other Dianna Gaming MD Start: 03-08-2009 Colonoscopy Beni thomas MD Work Phone: Plan of Treatment Date Care Activity Detail Author Start: 02-08-2025 DTaP/Tdap/Td Vaccines (2 - Td or Tdap) DTaP/Tdap/Td Vaccines (2 - Td or Tdap) [facility] Start: 02-08-2025 Urine microalbumin profile DTAP,TDAP,TD (2 - Td or Tdap) [facility] Start: 01-02-2024 LIPID SCREEN LIPID SCREEN [facility] Start: 03-29-2023 Influenza vaccination Influenza Vaccine (#1) [facility] Start: 03-29-2022 Influenza vaccination INFLUENZA (#1) [facility] Start: 03-13-2022 COVID-19 VACCINE (3 - Booster for Moderna series) COVID-19 VACCINE (3 - Booster for Moderna series) [facility] Start: 02-16-2022 Mammography MAMMOGRAM [facility] Start: 02-16-2022 Screening for malignant neoplasm of breast Mammogram [facility] Start: 02-13-2022 COVID-19 Vaccine (3 - Moderna risk series) COVID-19 Vaccine (3 - Moderna risk series) [facility] Start: 02-13-2022 DIABETES SCREEN DIABETES SCREEN [facility] Start: 07-29-2021 ADVANCE DIRECTIVE DISCUSSION ADVANCE DIRECTIVE DISCUSSION [facility] Start: 07-29-2021 DEPRESSION ASSESSMENT DEPRESSION ASSESSMENT [facility] Start: 01-22-2021 Lipid panel Lipid Panel [facility] Start: 06-10-2020 FECAL OCCULT BLOOD FECAL OCCULT BLOOD [facility] Start: 06-11-2019 COLORECTAL CANCER SCREENING COLORECTAL CANCER SCREENING [facility] Start: 03-08-2019 Colonoscopy COLONOSCOPY [facility] Start: 08-02-2017 SHINGRIX VACCINE (2 of 3) SHINGRIX VACCINE (2 of 3) [facility] Start: 08-02-2017 Zoster Vaccines (1 of 2) Zoster Vaccines (1 of 2) [facility] Start: 07-30-2017 End: 07-30-2017 Appointment Appointment [facility] Work Phone: Start: 04-10-2017 End: 04-10-2017 Appointment Appointment [facility] Work Phone: Start: 01-17-2017 End: 01-17-2017 Appointment Appointment [facility] Work Phone: Start: 01-17-2017 End: 01-17-2017 Follow Up Appt 6 months Follow Up Appt 6 months [facility] Work Phone: Start: 01-17-2017 End: 01-17-2017 MMM MMM [facility] Work Phone: Start: 01-08-2017 End: 01-08-2017 Appointment Appointment [facility] Work Phone: Start: 11-16-2016 End: 01-17-2017 MAJOR SALES ASSOCIATE MAJOR SALES ASSOCIATE [facility] Work Phone: Start: 11-16-2016 End: 01-17-2017 Follow Up Appt Other Follow Up Appt Other [facility] Work Phone: Start: 11-16-2016 End: 11-16-2016 Remote 30 day ecg rev/report 30 Day Holter Monitor [facility] Work Phone: Start: 10-12-2016 End: 10-12-2016 Follow Up Appt 6 months Follow Up Appt 6 months [facility] Work Phone: Start: 10-12-2016 End: 10-12-2016 MMM MMM [facility] Work Phone: Start: 01-23-2016 End: 11-14-2016 *Hepatic Function Panel *Hepatic Function Panel [facility] Work Phone: Start: 01-23-2016 End: 11-14-2016 Lipid panel [AGGREGATE] *Lipid Profile CC PCP [facility] Work Phone: Start: 06-28-2015 End: 01-20-2015 *Hepatic Function Panel *Hepatic Function Panel [facility] Work Phone: Start: 06-28-2015 End: 01-20-2015 Lipid panel [AGGREGATE] *Lipid Profile CC PCP [facility] Work Phone: Start: 01-20-2015 End: 01-20-2015 MAJOR SALES ASSOCIATE MAJOR SALES ASSOCIATE [facility] Work Phone: Start: 01-20-2015 End: 01-20-2015 Follow Up Appt 1 year Follow Up Appt 1 year [facility] Work Phone: Start: 07-14-2014 End: 07-26-2014 *Hepatic Function Panel *Hepatic Function Panel [facility] Work Phone: Start: 07-14-2014 End: 07-14-2014 MAJOR SALES ASSOCIATE MAJOR SALES ASSOCIATE [facility] Work Phone: Start: 07-14-2014 End: 07-14-2014 Follow Up Appt 6 months Follow Up Appt 6 months [facility] Work Phone: Start: 07-14-2014 End: 07-26-2014 Lipid panel [AGGREGATE] *Lipid Profile CC PCP [facility] Work Phone: Start: 11-20-2011 End: 11-20-2011 *SPEP (Serum Protein Electrophoresis) *SPEP (Serum Protein Electrophoresis) [facility] Work Phone: Start: 11-20-2011 End: 11-20-2011 Other Other [facility] Work Phone: Start: 1995 COLOGUARD (FIT-DNA) COLOGUARD (FIT-DNA) [facility] Start: [address] COLONOGRAPHY [facility] Start: 1995 SIGMOIDOSCOPY SIGMOIDOSCOPY [facility] Start: 01-06-1968 Diabetes mellitus screening Diabetes Screening [facility] Start: 01-06-1968 Hepatitis C screening Hepatitis C Screening [facility] Start: 1950 Medicare Annual Wellness Visit Medicare Annual Wellness Visit (AWV) [facility] Start: 1950 Screening for malignant neoplasm of colon [facility] Start: 1950 Screening for osteoporosis Bone Density Scan [facility] Start: 1950 Thyroid stimulating hormone measurement TSH Level [facility] Patient Education [facility] Work Phone: [facility] Immunizations Immunization Date Immunization Notes Care Provider Carole hernández 03-17-2020 pneumococcal polysaccharide vaccine, 23 valrodrigo Golden MD Work Phone: [facility] Work Phone: 06-07-2017 zoster vaccine, live Beni Olson MD Work Phone: [facility] Work Phone: 04-30-2017 pneumococcal conjuga te vaccine, 13 valrodrigo Golden MD Work Phone: [facility] 02-08-2015 tetanus toxoid, redu meghan diphtheria toxoid, and acellular pertussis vaccine, adsorbed Beni Golden MD Work Phone: [facility] Work Phone: Payers Date Payer Category Payer Medicare [id number] 2020 Medicare [id number] 1959 Medicare [id number] 1950 Unknown [id number] 1950 Unknown [id number] 1950 Unknown [id number] 1950 Unknown [id number] Social History Date Type Detail Facility Start: 06-29-2022 Tobacco smoking status NHIS Ex-smoker [facility] End: 09-26-1982 History of tobacco use Current smoker [facility] End: 09-26-1982 History of tobacco use Cigarette Smoker [facility] Start: 06-29-2022 End: 08-16-2023 Tobacco use and exposure Smokeless tobacco non-user [facility] Start: 06-29-2022 Alcohol intake Current drinker of alcohol (finding) [facility] Start: 05-02-2020 End: 09-13-2020 History SDOH Alcohol Frequency 1 [facility] Start: 09-13-2020 History SDOH Social Connections Phone 5 [facility] Start: 09-13-2020 History SDOH Social Connections Get Together 2 [facility] Start: 09-13-2020 History SDOH Social Connections Catholic 3 [facility] Start: 09-13-2020 Education 12 [facility] Start: 08-12-2014 Alcohol Comment Occasionally wine 5-6 per year [facility] Start: 1950 Sex Assigned At Female [facility] Start: 06-19-2022 End: 08-16-2023 Exposure to SARS-CoV-2 (event) Not sure [facility] Work Phone: Start: 08-16-2023 Tobacco smoking status NHIS Never smoked tobacco [facility] Work Phone: Start: 08-16-2023 History of Social function [facility] Work Phone: Start: 08-16-2023 Tobacco use panel [facility] Work Phone: Start: 1950 Sex Assigned At Not on file [facility] Work Phone: History of Present illness Narrative 08-16-2023 ALAN Douglas - 08/16/2023 2:50 PM EST Note Date & Type Note Facility 08-16-2023 History of Present illness Narrative [facility] ALAN Douglas Visit Note - 08/16/2023 3:51 PM This note was generated with voice recognition software and may contain errors including spelling, grammar, syntax, and misrecognization of what was dictated. Patient: Michele Carter, , 73 y.o., female PCP: Diana Amaral MD --- ALLERGIES: Allergies Allergen Reactions Chlorhexidine Hives Estradiol Swelling This was Estrace vaginal cream which caused mouth swelling and she can use premarin cream OK. Naproxen GI Upset CURRENT MEDICATIONS: Current Outpatient Medications Medication Instructions amiodarone (Pacerone) 200 mg tablet amoxicillin (AMOXIL) 875 mg, oral, 2 times daily, Take with food. apixaban (Eliquis) 5 mg tablet oral, 2 times daily atenolol (Tenormin) 50 mg tablet 1 tablet, oral, 2 times daily cholecalciferol (VITAMIN D-3) 400 Units, oral, Daily RT estradiol (Estrace) 0.01 % (0.1 mg/gram) vaginal cream APPLY 1 GRAM VAGINALLY TWICE WEEKLY AT BEDTIME hypromellose (GENTEAL GEL) 0.3 % opthalmic gel ophthalmic (eye) lansoprazole (PREVACID) 30 mg, oral, Daily RT loratadine (Claritin) 10 mg tablet 1 tablet, oral, Daily multivitamin with iron tablet oral omega-3 fatty acids 500 mg capsule 2 capsules, oral, Daily RT raloxifene (EVISTA) 60 mg, oral, Daily RT selenium 200 mcg tablet 1 tablet, oral, Daily Synthroid 25 mcg tablet Also currently taking macrobid nightly. --- PAST MEDICAL HX: History of atrial fibrillation, GERD, allergies, hypothyroidism. SURGICAL HX: History reviewed. No pertinent surgical history. FAMILY HX: No pertinent history. SOCIAL HX: Is a former smoker. --- CHIEF COMPLAINT: Chief Complaint Patient presents with Flu Symptoms Sinuses congestion/drainage x 3 weeks then sx worsened with nausea and WATT within last 5 days HISTORY OF PRESENT ILLNESS: The history was obtained from patientEster Forrest is a 73 y.o. female, who presents with a chief complaint of sinus congestion (very thick, yellow mucus), PND, headaches, fatigue, low-grade fevers, and nausea that she attributes to the PND - sxs started 3 weeks ago. Denies any chills, body aches, sore throat, ear pain, abdominal pain, chest pain, wheezing/shortness of breath, rashes, urinary symptoms, vomiting, and diarrhea. Denies any changes in mental status. No swelling in legs. Appetite is decreased ; is able to eat and drink fluids without difficulty; reports diminished sense of taste/smell but states this is baseline x years. Reports symptoms have gotten worse since onset. Has been taking Loratadine, cough drops, and using saline nasal spray without much relief; no other ciwk-pnn-tzksqyx medications or home remedies for symptom management. No known ill contacts. Is a former smoker. REVIEW OF SYSTEMS: 10 systems reviewed negative with exception of history of present illness as listed above. TODAY'S VITALS: BP 145/82 (BP Location: Left arm, Patient Position: Sitting, BP Cuff Size: Large adult) Pulse 60 Temp 36.6 C (97.9 F) (Temporal) Resp 14 Ht 1.651 m (5' 5 ) Wt 74.8 kg (165 lb) SpO2 97% BMI 27.46 kg/m PHYSICAL EXAMINATION: General: Mildly ill-appearing, well nourished older female; alert and oriented, in no acute distress. + audible nasal congestion. Eyes: Pupils equal, round and reactive to light. No conjunctival erythema; no scleral icterus. HENT: + mild frontal and maxillary sinus tenderness, with audible nasal congestion. Bilat ear canals clear/unremarkable, but TMs with clear effusions bilat; no erythema, and not bulging. Nasal mucosa moderately boggy and edematous. Airway patent, oral mucosa moist. Posterior pharynx mildly injected but without vesicles or oropharyngeal exudate aside from PND. Uvula is midline. Trachea is midline. Managing oral secretions without difficulty. Neck: Supple. Tender, mobile anterior cervical lymphadenopathy bilat. Respiratory: Lungs are clear to auscultation; no wheezes, rhonchi, or rales. Respirations unlabored, Breath sounds are equal, Symmetrical chest wall expansion. Mild, non-productive cough noted only upon request. Cardiovascular: Normal rate, Regular rhythm. Normal S1S2. No m/r/g. No peripheral edema. Gastrointestinal: Soft, non-tender, non-distended; no palpable masses or organomegaly. Bowel sounds normoactive. Musculoskeletal: Grossly normal Integumentary: [place], warm, dry, and intact. No rashes or skin discoloration appreciated. Neurologic: Alert and oriented, no focal deficits, no motor or sensory deficits. Cognition and Speech: Oriented, Speech clear and coherent. Psychiatric: Cooperative, Appropriate mood & affect. --- Medical Decision Making LABORATORY or RADIOLOGICAL IMAGING ORDERS/RESULTS: None IMPRESSION/PLAN: Course: Worsening; stable 1. Acute sinusitis, recurrence not specified, unspecified location - amoxicillin (Amoxil) 875 mg tablet; Take 1 tablet (875 mg) by mouth 2 times a day for 10 days. Take with food. Dispense: 20 tablet; Refill: 0 Discussed COVID-19 testing today - pt declined, but urged precautionary measures and to consider home testing. No red flags on exam today. Symptoms consistent with sinusitis, although reviewed other potential etiologies. Due to severity/duration of sxs, will begin treatment for bacterial infection today (Amoxicillin). Should finish full course of antibiotics, even if symptoms resolve more quickly. Instructed to push fluids, rest, and to use appropriate over the counter medications as needed for management of symptoms - discussed that Mucinex, vaporizer, and Saline Nasal [place] may be helpful. Reviewed red flags to monitor for, counseled on potential adverse reactions of treatments, expectations for improvement in sxs, and advised to follow-up with primary care provider in 3-5 days if symptoms persist, or sooner if worsening or if any additional concerns/red flags develop. Patient verbalized understanding and agreed with plan of care; questions were encouraged and answered. ALAN Douglas Advanced Practice Provider [facility] documented in this encounter [facility] Work Phone: Progress note 07-05-2022 Note Date & Type Note Facility 07-05-2022 Note HNO ID: [id number] Author: Wendy Triana APRN.KARYN Service: ? Author Type: Nurse Practitioner Type: Progress Notes Filed: 07/05/2022 4:23 PM Note Text: Michele Carter is a 72 year old who presents today for pessary insertion/cleaning. She wears a size ring with support pessary. She returns today with complaints of discharge that is yellow/green. She has not had problems with the pessary. She has not had vaginal bleeding. EXAM: pleasant, well developed, well nourished, in no apparent distress Pelvic: Bartholin's, urethra and [place]'s glands were normal. The ring with support pessary was removed. Vaginal exam indicated no erythema, no ulcerations, and vaginal discharge. The pessary was cleaned. Pt reinserted her own pessary. She takes the pessary out every night and replaces in the morning. ASSESSMENT/PLAN: 1. Vaginal discharge - ICD9: 623.5, ICD10: N89.8 - BACT/TERESA VAG GRAM STAIN Wendy Triana APRN.KARYN Medical Decision Making: Problems: Low: Acute, uncomplicated illness or injury Data: Unique test(s) ordered: 1 Risk: Low: Low risk from testing/treatment Medical Decision Making Level: 3 - Low [facility] Progress note 06-29-2022 Note Date & Type Note Facility 06-29-2022 Note HNO ID: [id number] Author: RT Thomas(R) Service: ? Author Type: Senior Qa Analyst Type: Progress Notes Filed: 06/29/2022 3:52 PM Note Text: Radiology Service Progress Note PATIENT NAME: Michele Carter DATE OF SERVICE: June 29, 2022 TIME: 3:39 PM PATIENT IDENTITY VERIFICATION COMPLETED USING TWO (2) IDENTIFIERS: Name and Date of confirmed by patient verbally. FALL SCREENING: Has the patient had 2 falls in the last year or 1 fall with injury or currently using an Ambulatory Assistive Device (Walker, Cane, Wheelchair, Crutches, etc.)? No PATIENT GENDER DATA: Female. status: : No status: NO. PATIENT RELEVANT IMPLANT DATA REVIEWED: Yes RADIOLOGY DEPARTMENT: General X-ray: Exam(s) Completed: Chest X-Ray PERIPHERAL IV DATA: Not applicable SIGNED BY: RT Thomas(R) June 29, 2022 3:39 PM [facility] Progress note 06-29-2022 Note Date & Type Note Facility 06-29-2022 Note HNO ID: [id number] Author: Beni Golden MD Service: ? Author Type: Physician Type: Progress Notes Filed: 06/29/2022 4:30 PM Note Text: Patient presents with: Cough: Pt reported chest congestion, nasal congestion x1 mth. HPI: Coughing for 1 month, seemed to improve some then flared again. Feeling chest tightness with it today so wanted to have it checked. She had an initial URI then got sinus symptoms. Treated 06/09-06/17 with antibiotic (Left over cephalexin then ceftin) and sinus symptoms improved. Positive symptoms: cough, Chest tightness, back pain with coughs, Nasal Congestion, Rhinorrhea, Post nasal drainage, intermittent Sore throat, headache from coughing. Negative symptoms: Shortness of breath, Fever, Nausea, Vomiting, Diarrhea, OTC: Lozenges Has not had COVID testing this illness. 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 Other osteoporosis Paroxysmal atrial fibrillation (HCC) Paroxysmal SVT (supraventricular tachycardia) (HCC) Sleep apnea Tachycardia Uterovaginal prolapse, incomplete PAST SURGICAL HISTORY Procedure Laterality Date ANESTH,PACEMAKER INSERTION COLONOSCOPY 10/02/2006 [facility] COLONOSCOPY FLX DX W/COLLJ SPEC WHEN PFRMD 03/08/2009 Diverticulosis HYSTEROSCOPY 12/11/2011 [facility] LAPAROSCOPY COLECTOMY PARTIAL W/ANASTOMOSIS 04/21/2009 LAPAROSCOPY SURG CHOLECYSTECTOMY 04/21/2009 LIG/TRNSXJ FLP TUBE ABDL/VAG APPR UNI/BI 1982 Tubal ligation Post PAST SURGICAL HISTORY OF 1978 right kidney surgery MEDICATIONS: Current Outpatient Medications Medication Sig apixaban (ELIQUIS) 5 mg tab(s) Take by mouth twice daily. lansoprazole (PREVACID) 30 mg capsule Take 1 capsule by mouth once daily. as directed ibuprofen (MOTRIN) 600 mg tablet Take 1 tablet by mouth every 6 hours as needed for Pain (Take three times daily as needed for 4-7 days as needed for chest wall discomfort). raloxifene (EVISTA) 60 mg tablet Take 1 tablet by mouth once daily. cholecalciferol, vitamin D3, 10 mcg (400 unit) cap Take 1 capsule by mouth once daily. 2000 IU daily vitamin B complex (B COMPLEX 1 ORAL) Take by mouth. triamcinolone acetonide (NASACORT NASAL) Use in the nose. apixaban (ELIQUIS) 5 mg tab(s) Take by mouth twice daily. atenolol (TENORMIN) 50 mg tablet Take 1 tablet by mouth twice daily. Lubricants gel Apply to affected area. Woodruff-3 Fatty Acids (FISH OIL) 500 mg cap Take 2 capsules by mouth once daily. CRANBERRY EXTRACT (CRANBERRY CONCENTRATE ORAL) Take by mouth. CALCIUM 500 MG TAB Take one(1) tablet three times daily. multivitamins(DAILY MULTIVITAMIN TAB) Take one(1) tablet daily. flecainide (TAMBOCOR) 100 mg tablet Take 100 mg by mouth twice daily. (Patient not taking: Reported on 06/29/2022) hydrocortisone 2.5 % ointment Apply to affected areas twice daily as needed flecainide (TAMBOCOR) 50 mg tablet Take 50 mg by mouth twice daily. (Patient not taking: Reported on 06/29/2022) eye lubricant combination no.1(FRESHKOTE 2 %-0.9 %-1.8 % EYE DROPS) Takes 1 drop each eye three times daily hypromellose(GENTEAL 0.3 % EYE GEL) Use at bedtime loratadine(CLARITIN 10 MG TAB) one tab daily (Patient not taking: ) No current facility-administered medications for this visit. ALLERGIES: ALLERGIES Allergen Reactions Chlorhexidine Hives Environmental [Othe* cats, dogs, = sinus infections Estrace [Estradiol] Swelling This was Estrace vaginal cream which caused mouth swelling and she can use premarin cream OK. Naproxen GI Upset VITALS: BP 142/82 Pulse 65 Temp 36.2 ?C (97.1 ?F) Resp 18 Wt 70.6 kg (155 lb 9.6 oz) SpO2 97% BMI 25.89 kg/m? PHYSICAL EXAM: GEN: pleasant, alert, mildly ill appearing HEENT: PERRL, EOMI, conjunctiva clear Ears: canals clear. TMs without erythema, bulge, or effusion Sinuses: non-tender frontal sinus, non-tender maxillary sinuses Throat: moist mucous membranes, mild erythema, no exudate Neck: supple, no thyromegaly, no lymphadenopathy HEART: regular rate and rhythm, no murmurs LUNGS: lung sounds diminished but clear to auscultation, no wheezes or crackles, no increased WOB; raspy cough ASSESSMENT/PLAN: 1. Subacute cough - ICD9: 786.2, ICD10: R05.2 - XR CHEST 2V FRONTAL/LAT - negative. Probably multiple viral URIs/bronchitis. Declines COVID testing. - BENZONATATE 100 MG CAPSULE Follow up with worsening cough, worsening shortness of breath, increasing chest pain, or late onset fever. Beni Golden MD [facility] History of Present illness Narrative 06-29-2022 Beni Golden MD - 06/29/2022 2:58 PM EST Note Date & Type Note Facility 06-29-2022 History of Presen t illness Narrative Patient presents with: Cough: Pt reported chest congestion, nasal congestion x1 mth. HPI: Coughing for 1 month, seemed to improve some then flared again. Feeling chest tightness with it today so wanted to have it checked. She had an initial URI then got sinus symptoms. Treated 06/09-06/17 with antibiotic (Left over cephalexin then ceftin) and sinus symptoms improved. Positive symptoms: cough, Chest tightness, back pain with coughs, Nasal Congestion, Rhinorrhea, Post nasal drainage, intermittent Sore throat, headache from coughing. Negative symptoms: Shortness of breath, Fever, Nausea, Vomiting, Diarrhea, OTC: Lozenges Has not had COVID testing this illness. 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 Other osteoporosis Paroxysmal atrial fibrillation (HCC) Paroxysmal SVT (supraventricular tachycardia) (HCC) Sleep apnea Tachycardia Uterovaginal prolapse, incomplete PAST SURGICAL HISTORY Procedure Laterality Date ANESTH,PACEMAKER INSERTION COLONOSCOPY 10/02/2006 [facility] COLONOSCOPY FLX DX W/COLLJ SPEC WHEN PFRMD 03/08/2009 Diverticulosis HYSTEROSCOPY 12/11/2011 [facility] LAPAROSCOPY COLECTOMY PARTIAL W/ANASTOMOSIS 04/21/2009 LAPAROSCOPY SURG CHOLECYSTECTOMY 04/21/2009 LIG/TRNSXJ FLP TUBE ABDL/VAG APPR UNI/BI 1982 Tubal ligation Post PAST SURGICAL HISTORY OF 1978 right kidney surgery MEDICATIONS: Current Outpatient Medications Medication Sig apixaban (ELIQUIS) 5 mg tab(s) Take by mouth twice daily. lansoprazole (PREVACID) 30 mg capsule Take 1 capsule by mouth once daily. as directed ibuprofen (MOTRIN) 600 mg tablet Take 1 tablet by mouth every 6 hours as needed for Pain (Take three times daily as needed for 4-7 days as needed for chest wall discomfort). raloxifene (EVISTA) 60 mg tablet Take 1 tablet by mouth once daily. cholecalciferol, vitamin D3, 10 mcg (400 unit) cap Take 1 capsule by mouth once daily. 2000 IU daily vitamin B complex (B COMPLEX 1 ORAL) Take by mouth. triamcinolone acetonide (NASACORT NASAL) Use in the nose. apixaban (ELIQUIS) 5 mg tab(s) Take by mouth twice daily. atenolol (TENORMIN) 50 mg tablet Take 1 tablet by mouth twice daily. Lubricants gel Apply to affected area. Wood[place]-3 Fatty Acids (FISH OIL) 500 mg cap Take 2 capsules by mouth once daily. CRANBERRY EXTRACT (CRANBERRY CONCENTRATE ORAL) Take by mouth. CALCIUM 500 MG TAB Take one(1) tablet three times daily. multivitamins(DAILY MULTIVITAMIN TAB) Take one(1) tablet daily. flecainide (TAMBOCOR) 100 mg tablet Take 100 mg by mouth twice daily. (Patient not taking: Reported on 06/29/2022) hydrocortisone 2.5 % ointment Apply to affected areas twice daily as needed flecainide (TAMBOCOR) 50 mg tablet Take 50 mg by mouth twice daily. (Patient not taking: Reported on 06/29/2022) eye lubricant combination no.1(FRESHKOTE 2 %-0.9 %-1.8 % EYE DROPS) Takes 1 drop each eye three times daily hypromellose(GENTEAL 0.3 % EYE GEL) Use at bedtime loratadine(CLARITIN 10 MG TAB) one tab daily (Patient not taking: ) No current facility-administered medications for this visit. ALLERGIES: ALLERGIES Allergen Reactions Chlorhexidine Hives Environmental [Othe* cats, dogs, = sinus infections Estrace [Estradiol] Swelling This was Estrace vaginal cream which caused mouth swelling and she can use premarin cream OK. Naproxen GI Upset VITALS: BP 142/82 Pulse 65 Temp 36.2 C (97.1 F) Resp 18 Wt 70.6 kg (155 lb 9.6 oz) SpO2 97% BMI 25.89 kg/m PHYSICAL EXAM: GEN: pleasant, alert, mildly ill appearing HEENT: PERRL, EOMI, conjunctiva clear Ears: canals clear. TMs without erythema, bulge, or effusion Sinuses: non-tender frontal sinus, non-tender maxillary sinuses Throat: moist mucous membranes, mild erythema, no exudate Neck: supple, no thyromegaly, no lymphadenopathy HEART: regular rate and rhythm, no murmurs LUNGS: lung sounds diminished but clear to auscultation, no wheezes or crackles, no increased WOB; raspy cough ASSESSMENT/PLAN: 1. Subacute cough - ICD9: 786.2, ICD10: R05.2 - XR CHEST 2V FRONTAL/LAT - negative. Probably multiple viral URIs/bronchitis. Declines COVID testing. - BENZONATATE 100 MG CAPSULE Follow up with worsening cough, worsening shortness of breath, increasing chest pain, or late onset fever. Beni Golden MD documented in this encounter [facility] History of Past illness Narrative 12-25-2011 Note Date & Type Note Facility documented as of this encounter (statuses as of 06/29/2022) [facility] Evaluation note Note Date & Type Note Facility documented in this encounter [facility] Evaluation note Note Date & Type Note Facility documented in this encounter [facility] Work Phone: Advance Directives No Advanced Directives Records FoundDocuments on File Type Date Recorded Patient Heel Top Lift Splitter Expl anation Advance Directive(s) 12/13/2011 9:55 PM Summary Purpose Family History No Family History Records FoundNo Family History Records FoundNo Family History Records Found Additional Source Comments Source Comments (unrecognize d section and content) In the event this informatio n is protected by the Federal Confidentiality of Alcohol and Drug Abuse Patient Records regulations: The Federal rules restrict any use of the information to criminally investigate or prosecute any alcohol or drug abuse patient.[facility] Reason for Visit (unrecogniz ed section and content) Reason Comments Flu Symptoms Sinuses congestion/d rainage x 3 weeks then sx worsened with nausea and WATT within last 5 days Care Teams (unrecognized sec tion and content) Ammonia Box Operator Relationship Specialty Start Date End Date Diana Amaral MD [address] [place] [address] PCP - General Family Medicine 08/16/23 INFORMATION SOURCE (unrecogn ized section and content) DATE CREATED AUTHOR AUTHOR'S ORGANIZ ATION 10/31/2022 [facility] DATE CREATED AUTHOR AUTHOR'S ORGANIZ ATION 08/17/2023 [facility] FOR RECORDS PERTAINING TO PATIENTS WHO ARE OR HAVE BEEN ENROLLED IN A CHEMICAL DEPENDENCY/SUBSTANCEABUSE PROGRAM, SOME INFORMATION MAY BE OMITTED. This clinical summary was aggregated from multiple sources. Caution should be exercised in using it in the provision of clinical care. This summary normalizes information from multiple sources, and as a consequence, information in this document may materially change the coding, format and clinical context of patient data. In addition, data may be omitted in some cases. CLINICAL DECISIONS SHOULD BE BASED ON THE PRIMARY CLINICAL RECORDS. [employer] provides no warranty or guarantee of the accuracy or completeness of information in this document.
== END | disposition home or self-care (01) ==
LOC: MTRAD 10:10
PROVIDERS: PCP Internal Medicine Cardiovascular Disease; Referring Provider Internal Medicine Pulmonary Disease; Visit Provider Internal Medicine Pulmonary Disease
DX: R07.9 Chest pain, unspecified (principal); R06.02 Shortness of breath
CPT/HCPCS: 71046

== ENCOUNTER → 2024-03-06 | Outpatient (CLI) | payer MEDICARE, SELFPAY ==
--- NOTE | 2024-03-06 10:13 | BI_ITS ---
MAMMOGRAPHY - BILATERAL SCREENING 3-D TOMOSYNTHESIS REASON FOR EXAM: Female, 74 years old. SCREENING PERTINENT HISTORY: No significant family history. TECHNIQUE: 2-D mammograms and 3-D Tomosynthesis of the breast (s) were performed. CAD was performed. COMPARISON: 02/22/2023 FINDINGS: The breast composition is composed of scattered fibroglandular density. Scattered benign calcifications are seen. No dense spiculated masses or suspicious microcalcifications are identified. No architectural distortion is identified. There is no skin thickening or retraction. There has been no significant change since the prior study. BI/SCRN MAMM (CAD)W/SHIRIN BILAT IMPRESSION: No mammographic signs of malignancy. Routine yearly mammograms recommended. ASSESSMENT CATEGORY: BIRADS Category 1: Negative. A letter regarding these results will be sent to the patient by the facility within 30 days. FOLLOW UP RECOMMENDATION: Yearly follow up mammogram recommended. (A) Approximately 10% of breast cancers are not detected by mammography. A normal mammogram should not delay biopsy of a clinically suspicious abnormality. Electronically Signed: Ernesto Bowie MD at 13:29 EDT ,
== END | disposition home or self-care (01) ==
LOC: OPBI 10:12
PROVIDERS: PCP Family Medicine; Referring Provider Family Medicine; Visit Provider Family Medicine
DX: Z12.31 Encounter for screening mammogram for malignant neoplasm of breast (principal)
CPT/HCPCS: 77063; 77067

== ENCOUNTER → 2024-03-19 | Outpatient (CLI) | payer MEDICARE, SELFPAY ==
[2024-03-19 10:10] LABS: Absolute Lymphocyte Count 1.22 X10^3/uL (0.83-4.51); Absolute Neutrophil Count 2.8 X10^3/uL (2.0-7.7); Basophil# 0.04 X10^3/uL; Basophil% 0.9 % (0-1); Eosinophils% 2.2 % (0-5); Hematocrit 39.3 % (37-47); Hemoglobin 12.3 g/dL (12.0-15.0); Lymphocyte # 1.22 X10^3/ul (0.83-4.51); Lymphocyte % 26.5 % (19-41); Mean Corp Hgb Conc 31.3 g/dL (32-36); Mean Corpuscular Hgb 30.2 pg (27.0-32.0); Mean Corpuscular Volume 96.6 fL (81-99); Mean Platelet Vol. 10.5 fl (6.2-12.0); Monocyte# 0.39 X10^3/uL; Monocyte% 8.5 % (0-10); NRBC Flagged by Analyzer 0 % (0-5); Neutrophil # 2.84 X10^3/uL (2.7-7.7); Neutrophil % 61.7 % (47-70); Platelet Count 279 K/mm3 (150-450); RBC Distribution Width CV 13.2 % (11.6-14.6); RBC Distribution Width SD 46.9 fl (35.1-43.9); Red Blood Count 4.07 M/mm3 (4.2-5.4); White Blood Count 4.6 K/mm3 (4.4-11.0)
[2024-03-19 10:47] LABS: Vitamin D,25 Hydroxy 51.2 ng/mL
[2024-03-19 11:30] LABS: ALB/GLOB Ratio 0.9 RATIO (0.9-2.4); AST(SGOT) 24 U/L (15-37); Alanine Aminotransfer ALT/SGPT 33 U/L (13-56); Alkaline Phosphatase 73 U/L (45-117); Anion Gap 6 (5-15); BUN 18 mg/dL (7-18); BUN/Creat Ratio 23.6 RATIO (10-20); Calcium,Total 8.6 mg/dL (8.5-10.1); Chloride 108 mmol/L (98-107); Creatinine, Serum 0.76 mg/dL (0.55-1.02); EST Glomerular Filtration Rate 79 mL/min (>60); Est Glom Filt Rate - Afr Amer 95 mL/min (>60); Globulin 3.5 g/dL (2.2-4.2); Glucose 93 mg/dL (74-106); Potassium 3.8 mmol/L (3.5-5.1); Protein, Total 6.5 g/dL (6.4-8.2); Sodium Level 141 mmol/L (136-145); T4 Free Direct 1.06 ng/dL (0.76-1.46)
== END | disposition home or self-care (01) ==
LOC: MFPLAB 08:51
PROVIDERS: PCP Family Medicine; Visit Provider Family Medicine
DX: M85.80 Other specified disorders of bone density and structure, unspecified site (principal); I48.91 Unspecified atrial fibrillation; G47.33 Obstructive sleep apnea (adult) (pediatric)
CPT/HCPCS: 36415; 80053; 82306; 84439; 84443; 85025

== ENCOUNTER → 2024-08-20 | Outpatient (CLI) | payer MEDICARE, SELFPAY ==
[2024-08-20 15:04] LABS: Absolute Lymphocyte Count 1.85 X10^3/uL (0.83-4.51); Absolute Neutrophil Count 3.5 X10^3/uL (2.0-7.7); Basophil# 0.02 X10^3/uL; Basophil% 0.3 % (0-1); Eosinophil# 0.09 X10^3/uL; Eosinophils% 1.5 % (0-5); Hematocrit 37.9 % (37-47); Lymphocyte # 1.85 X10^3/ul (0.83-4.51); Lymphocyte % 31.5 % (19-41); Mean Corp Hgb Conc 31.7 g/dL (32-36); Mean Corpuscular Hgb 29.8 pg (27.0-32.0); Mean Platelet Vol. 10.5 fl (6.2-12.0); Monocyte# 0.37 X10^3/uL; Monocyte% 6.3 % (0-10); NRBC Flagged by Analyzer 0 % (0-5); Neutrophil # 3.53 X10^3/uL (2.7-7.7); Neutrophil % 60.2 % (47-70); Platelet Count 248 K/mm3 (150-450); RBC Distribution Width CV 12.5 % (11.6-14.6); RBC Distribution Width SD 43.2 fl (35.1-43.9); Red Blood Count 4.03 M/mm3 (4.2-5.4); White Blood Count 5.9 K/mm3 (4.4-11.0)
[2024-08-20 15:39] LABS: Anion Gap 5 (5-15); BUN 16 mg/dL (7-18); BUN/Creat Ratio 19.2 RATIO (10-20); Calcium,Total 9.1 mg/dL (8.5-10.1); Chloride 106 mmol/L (98-107); Creatinine, Serum 0.84 mg/dL (0.55-1.02); EST Glomerular Filtration Rate 71 mL/min (>60); Est Glom Filt Rate - Afr Amer 86 mL/min (>60); Glucose 132 mg/dL (74-106); Potassium 3.6 mmol/L (3.5-5.1); Sodium Level 140 mmol/L (136-145)
== END | disposition home or self-care (01) ==
LOC: MTLAB 12:45
PROVIDERS: PCP Family Medicine; Referring Provider Physician Assistant Medical; Visit Provider Physician Assistant Medical
DX: R06.09 Other forms of dyspnea (principal); I48.92 Unspecified atrial flutter; I48.0 Paroxysmal atrial fibrillation; Z95.0 Presence of cardiac pacemaker; I10 Essential (primary) hypertension; R07.9 Chest pain, unspecified
CPT/HCPCS: 36415; 80048; 84443; 85025

== ENCOUNTER → 2024-09-07 | Outpatient (CLI) | payer MEDICARE, SELFPAY ==
--- NOTE | 2024-09-07 10:42 | STRESSREP_ITS ---
Stress Test Report Pharmacologic myocardial perfusion stress test. 74-year-old lady with a history of atrial fibrillation status post pacemaker implantation Resting EKG demonstrates sinus rhythm with a rate of 62 bpm. Resting blood pressure is 158/82 mmHg. 0.4 mg of regadenoson was infused per usual protocol followed by rapid intravenous saline flush injection. Continuous EKG monitoring was performed. The maximum heart rate was 77 bpm which was 52% of max impacted heart rate the maximum workload was 1 metabolic equivalent. At rest there were no ST or T wave changes noted to suggest ischemia and at peak infusion nonspecific ST changes were noted which did not meet the criteria for ischemia. No clinical angina is noted. The final blood pressure was 150/72 mmHg. Myocardial perfusion protocol. 12.0 mCi of technetium 99m sestamibi was injected at rest. 0.4 mg of regadenoson was infused per usual protocol. At peak infusion 36 mCi of techneti um 99m sestamibi was injected stress images were obtained stress and rest images were reconstructed and compared in the short axis vertical long and horizontal long axis. Gated images were also obtained. Perfusion SPECT analysis: Review of the stress images demonstrate normal uptake of tracer noted in all areas of the myocardium. The resting images similar demonstrated normal uptake of tracer noted in all areas of the myocardium. No areas of reversibility are noted to suggest ischemia and no previous infarct is noted. Gated SPECT analysis: The gated ejection fraction is 77%. Conclusion: Normal pharmacologic myocardial perfusion stress test. Preserved ejection fraction.
== END | disposition home or self-care (01) ==
PROVIDERS: PCP Family Medicine; Referring Provider Physician Assistant Medical; Visit Provider Physician Assistant Medical
DX: R07.9 Chest pain, unspecified (principal); I48.92 Unspecified atrial flutter; I48.0 Paroxysmal atrial fibrillation; Z95.0 Presence of cardiac pacemaker; I10 Essential (primary) hypertension
CPT/HCPCS: 78452; 93017; A9500; A4216; J2785

== ENCOUNTER → 2024-09-15 | Outpatient (CLI) | payer MEDICARE, SELFPAY ==
[2024-09-15 12:45] LABS: Absolute Lymphocyte Count 1.79 X10^3/uL (0.83-4.51); Absolute Neutrophil Count 3.8 X10^3/uL (2.0-7.7); Basophil# 0.02 X10^3/uL; Basophil% 0.3 % (0-1); Eosinophil# 0.08 X10^3/uL; Eosinophils% 1.3 % (0-5); Hematocrit 40.7 % (37-47); Hemoglobin 12.9 g/dL (12.0-15.0); Lymphocyte # 1.79 X10^3/ul (0.83-4.51); Lymphocyte % 29.3 % (19-41); Mean Corp Hgb Conc 31.7 g/dL (32-36); Mean Corpuscular Hgb 30.4 pg (27.0-32.0); Mean Corpuscular Volume 95.8 fL (81-99); Mean Platelet Vol. 10.6 fl (6.2-12.0); Monocyte# 0.41 X10^3/uL; Monocyte% 6.7 % (0-10); NRBC Flagged by Analyzer 0 % (0-5); Neutrophil # 3.79 X10^3/uL (2.7-7.7); Neutrophil % 62.1 % (47-70); Platelet Count 261 K/mm3 (150-450); RBC Distribution Width CV 12.3 % (11.6-14.6); Red Blood Count 4.25 M/mm3 (4.2-5.4); White Blood Count 6.1 K/mm3 (4.4-11.0)
[2024-09-15 13:39] LABS: AST(SGOT) 19 U/L (15-37); Alanine Aminotransfer ALT/SGPT 25 U/L (13-56); Albumin, Serum 3.4 g/dL (3.2-5.0); Alkaline Phosphatase 68 U/L (45-117); Anion Gap 6 (5-15); BUN 16 mg/dL (7-18); BUN/Creat Ratio 19.2 RATIO (10-20); Calcium,Total 9.1 mg/dL (8.5-10.1); Chloride 108 mmol/L (98-107); Creatinine, Serum 0.83 mg/dL (0.55-1.02); EST Glomerular Filtration Rate 71 mL/min (>60); Est Glom Filt Rate - Afr Amer 86 mL/min (>60); Globulin 3.4 g/dL (2.2-4.2); Glucose 80 mg/dL (74-106); Potassium 4.1 mmol/L (3.5-5.1); Protein, Total 6.8 g/dL (6.4-8.2); Sodium Level 141 mmol/L (136-145)
== END | disposition home or self-care (01) ==
LOC: MFPLAB 10:22
PROVIDERS: PCP Family Medicine; Referring Provider Family Medicine; Visit Provider Family Medicine
DX: M85.80 Other specified disorders of bone density and structure, unspecified site (principal); R07.89 Other chest pain
CPT/HCPCS: 36415; 80053; 82306; 85025

== ENCOUNTER → 2024-12-08 | Outpatient (CLI) | payer MEDICARE, SELFPAY ==
[2024-12-08 12:51] LABS: Free T3 2.5 pg/mL (2.18-3.98)
[2024-12-08 12:57] LABS: ALB/GLOB Ratio 1.5 RATIO (0.9-2.4); AST(SGOT) 23 U/L (<=31); Alanine Aminotransfer ALT/SGPT 17 U/L (<=34); Alkaline Phosphatase 71 U/L (35-104); Anion Gap 11 (5-15); BUN 20 mg/dL (4-19); BUN/Creat Ratio 23.4 RATIO (10-20); Calcium,Total 9.3 mg/dL (7.6-11.0); Chloride 106 mmol/L (98-108); Creatinine, Serum 0.86 mg/dL (0.70-1.20); EST Glomerular Filtration Rate 71 (>60); Globulin 2.6 g/dL (2.2-4.2); Glucose 92 mg/dL (70-99); Potassium 3.9 mmol/L (3.3-5.1); Protein, Total 6.6 g/dL (5.9-8.4); Sodium Level 140 mmol/L (133-145); Total Bilirubin < 0.15 mg/dL (0.00-1.30)
== END | disposition home or self-care (01) ==
LOC: MTLAB 10:49
PROVIDERS: PCP Family Medicine; Referring Provider Family Medicine; Visit Provider Family Medicine
DX: E05.90 Thyrotoxicosis, unspecified without thyrotoxic crisis or storm (principal)
CPT/HCPCS: 36415; 80053; 84439; 84443; 84481

== ENCOUNTER → 2025-03-31 | Outpatient (CLI) | payer MEDICARE, SELFPAY ==
--- NOTE | 2025-03-31 11:57 | BI_ITS ---
EXAM: SCRN MAMM (CAD)W/SHIRIN BILAT DATE: 03/31/2025 CLINICAL HISTORY: F, Age 75 y/o , SCREENING Sister with breast cancer. Mother with breast cancer. TECHNIQUE: Procedure Code: [id number] Modality: MG Procedure: SCRN MAMM (CAD)W/SHIRIN BILAT COMPARISON: Prior exam(s) dated March 06, 2024.. FINDINGS: TISSUE DENSITY: There are scattered areas of fibroglandular density. Bilateral Breast Mammographic Findings: No significant masses, calcifications or other abnormalities are identified. No suspicious masses, areas of developing architectural distortion, or suspicious calcifications. There has been no significant interval change. BI/SCRN MAMM (CAD)W/SHIRIN BILAT IMPRESSION: Stable bilateral screening mammogram. OVERALL FINAL ASSESSMENT BI-RADS 1: NEGATIVE. RECOMMENDATION: Routine annual follow-up in 1 Year A letter with findings and recommendations will be mailed to the patient. Reading Location: [place] [id number]
--- NOTE | 2025-03-31 12:20 | BD_ITS ---
PROCEDURE: DEXA BONE DENSITY STUDY 03/31/2025 REASON FOR EXAM: F, age 75 y/o . Postmenopausal. TECHNIQUE: Procedure Code: BDDBD Modality: DX Procedure: DEXA BONE DENSITY STUDY COMPARISON: Prior study dated February 20, 2022. FINDINGS: BMD and T-SCORES Lumbar spine: 0.961 g/cm2, T-score -1.3 Levels: L1 through L4 Change from prior: Loss of 3.2%. Left femoral neck: 0.663 g/cm2, T-score -1.7 Femoral neck comparison data not recommended for monitoring change. Left total hip: 0.793 g/cm2, T-score -1.2 Change from prior: Loss of 5.6%. Right femoral neck: 0.700 g/cm2, T-score -1.3 Femoral neck comparison data not recommended for monitoring change. Right total hip: 0.863 g/cm2, T-score -0.6 Change from prior: Loss of 7.3%. The World Health Organization has defined the following categories based on bone density: Normal bone density: T-score equal to or greater than -1.0 Osteopenia: T-score between -1.0 and -2.5 Osteoporosis: T-score equal to or less than -2.5 FRAX (or Comparable) Fracture Risk Assessment: 10 Year Probability of Fracture: Major Osteoporotic Fracture: 26% Hip Fracture: 6 point% (Note: FRAX is not to be reported in setting of normal range bone density, osteoporosis on DEXA, known history of osteoporosis, prior osteoporotic hip or vertebral fracture, or for any patient undergoing pharmacological treatment for bone loss.) The National Osteoporosis Foundation (NOF) recommends pharmacological treatment for patients with a FRAX 10-year risk of 3% or higher for a hip fracture, or 20% or higher for a major osteoporotic fracture, to prevent osteoporosis and reduce fracture risk. The patient does meet the pharmacological treatment recommendations for prevention of osteoporosis. BD/Dexa Bone Density Study IMPRESSION: OSTEOPENIA. Recommend follow-up as clinically warranted. Reading Location: [place] [id number]
== END | disposition home or self-care (01) ==
PROVIDERS: PCP Family Medicine
DX: Z12.31 Encounter for screening mammogram for malignant neoplasm of breast (principal); M81.0 Age-related osteoporosis without current pathological fracture
CPT/HCPCS: 77063; 77067; 77080